=== PATIENT | male | born 1955 | race Caucasian/White ===

== ENCOUNTER 2023-04-24 12:00 | Inpatient (IN) | payer MEDICARE ==
[~2023-04-24] VITALS: Ht 175.3 cm; Wt 110.5 kg
[2023-04-24] MEDS: DOCUSATE SODIUM 100 MG (COLACE) CAP PO SCH ×3 (09:00→21:54)
[~2023-04-24 12:00] MED LIST: ACETAMINOPHEN 325 MG TABLET PO PRN; ALPRAZolam 0.25 MG (XANAX) TAB PO PRN; BISACODYL 10 MG SUPP (DULCOLAX) PR PRN; CALCIUM CARBONATE 500 MG (TUMS) TAB.CHEW PO PRN; DOCUSATE SODIUM 100 MG (COLACE) CAP PO PRN; FLEET ENEMA ADULT 1 EA BTL PR PRN; LACTULOSE SYRUP 10GM/15ML (ENULOSE) 30ML UDC PO PRN; LOPERAMIDE 2 MG (IMODIUM) TABLET PO PRN; MELATONIN 3 MG TABLET PO PRN; ONDANSETRON 4 MG (ZOFRAN) ORAL DISSOLVE TAB PO PRN; diphenhydrAMINE 25 MG TAB (BENADRYL) PO PRN; guaiFENesin/CODEINE (ROBITUSSIN AC) 10ML UDC PO PRN
--- NOTE | 2023-04-24 12:08 | PM&R Post Admission Assessment ---
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 He has a history of telangiectasia of the left eye that forced early mcc. He currently has no pain and his bowels are moving. He has had no incontinence. He did not bring his CPAP with him so ordered a CPAP set up from [facility]. His brought him over to the hospital and she arrives and has no new concerns. He did not receive tPA since NIH score was 2. MRI confirmed right sided cerebral infarct. He remains on stroke protocol meds. 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 The patient presented to the ER with a chief complaint of left-sided weakness. The patient was in his usual state of healthuntil approximately 8:00 on yesterday, when he began to develop left-sided weakness, while watching TV. He also reported other associated symptoms such as lip paresthesia, facial asymmetry, slurred speech, dizziness, clumsiness, and recent falls. He,also,reports that he developed twoepisode of diarrhea with fecal incontinence,which she attributes to his taking metformin, which she has taken for several years. Upon the patient's arrival to the ER, by wheelchair, his blood pressure was noted to be as high as 215/90 mmHg. The patient denies headache, blurred vision, fevers, chills, night sweats, jaw pain, neck pain, chest pain, diaphoresis, dyspnea, dyspnea on exertion, cough, sputum production, hemoptysis, nausea, vomiting, hematemesis, coffee-ground emesis, constipation, abdominal pain, melena, hematochezia, hematuria, dysuria, increased urinary frequency, lower extremity edema, or any other symptoms. ? Abnormal stress test ? Anxiety ? CAD (coronary artery disease) 02/03/2018 3-CABG ? Carotid stenosis, bilateral ? Chest pain ? Chest pain on exertion ? Elevated liver enzymes ? H/O seasonal allergies ? HTN (hypertension) ? Hyperlipidemia 12/14 ? Neuropathy of both feet ? Obesity ? BAYLEE (obstructive sleep apnea) dx 2003 on CPAP and it works well; test done at [facility] so records lost in [place] 03/11 ? Sleep apnea USES C-PAP ? Telangiectasis L EYE - avascular ? Thromboembolism CAROTID ARTERY ON RIGHT, TX WITH ELIQUIS ? Type II diabetes mellitus 05/2011 LAST HGB A1C 7 ? HX HEART CATHETERIZATION 01/13/2018 ? HX ORTHOPEDIC SURGERY ? NJ ARTHROSCOPY KNEE DIAGNOSTIC W/WO SYNOVIAL BX SPX 2000 R KNEE ? NJ CABG W/ARTERIAL GRAFT SINGLE ARTERIAL GRAFT N/A 02/03/2018 CORONARY ARTERY BYPASS GRAFT WITH TANIA performed by Vidal Orr II, MD at [facility] OR ? NJ NDSC SURG W/VIDEO-ASSISTED HARVEST VEIN CABG Left 02/03/2018 VEIN HARVEST ENDOSCOPIC performed by Vidal Orr II, MD at [facility] OR [facility] summary: Please see H and P for full details on admission, symptoms and initial care. 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 MRI brain showed acute right lacunar stroke. CTA of head and neck did not show any s ignificant stenosis or occlusion. Neurology started on Plavix along with Aspirin, and changed statin to Lipitor. ECHO did not show any clots or PFO. Patient cleared for discharge to [facility]. He has 3/5 strength in left arm, and 4-5/5 in left leg. He is able to ambulate with some support. He will follow up with outpatient Neurology in 2-3 weeks. Past Sgkhffm-Rwdrsu-Bdsrse Hx Past Med/Social Hx: Reviewed Nursing Past Med/Soc Hx, Reviewed and Corrections made Patient Social History Marrital Status: Employed/Student: retired Alcohol Use: Occasionally Uses Smoking Status: Never a Smoker Past Medical History Respiratory: Sleep Apnea Currently Using CPAP: Yes Currently Using BIPAP: No Cardiac: Chronic Edema/Swelling, Coronary Artery Disease, Deep Vein Thrombosis, High Cholesterol, Hypertension Neurological: Stroke (04/22/23) Genitourinary: Renal Failure Musculoskeletal: Degenerate Disk Disease, Chronic Back Pain Endocrine: Diabetes, Insulin dep Are Your Blood Sugars Over 250: Yes PM&R Allergy/Meds/Data Review Allergies Coded Allergies: tetracycline (Verified Allergy, Mild, Rash, 04/24/23) Current Medications Current Medications Reviewed Review of Systems Constitutional: see HPI, dizziness, weakness EENTM: no symptoms reported Respiratory: no symptoms reported Cardiovascular: no symptoms reported Gastrointestinal: no symptoms reported Genitourinary: no symptoms reported Musculoskeletal: no symptoms reported Skin: no symptoms reported Psychiatric/Neurological: Anxiety, Depressed, Tingling, Weakness All Other Systems Reviewed Negative Unless Noted: Yes Physical Exam Physical Exam Vital Signs Capillary Refill : Height, Weight, BMI Height: '" Weight: lbs. oz. kg; BMI Method: General Appearance: No Apparent Distress, WD/WN, Chronically ill Eyes: Bilateral Eye Normal Inspection, Bilateral Eye PERRL HEENT: PERRL/EOMI, Normal ENT Inspection, Pharynx Normal Neck: Full Range of Motion, Normal Inspection, Non Tender, Supple, Carotid Bruit Respiratory: Chest Non Tender, Lungs Clear, Normal Breath Sounds, No Accessory Muscle Use, No Respiratory Distress Cardiovascular: Regular Rate, Rhythm, No Edema, No Gallop, No JVD, No Murmur, Normal Peripheral Pulses Gastrointestinal: Normal Bowel Sounds, No Organomegaly, No Pulsatile Mass, Non Tender, Soft Back: Normal Inspection, No CVA Tenderness, No Vertebral Tenderness Extremity: Normal Capillary Refill, Normal Inspection, Normal Range of Motion, Non Tender, No Calf Tenderness, No Pedal Edema Neurologic/Psychiatric: Alert, Oriented x3, Normal Mood/Affect, acid leveler II-XII Norm as Tested, Abnormal Gait, Motor Weakness (Left arm 3/5 left leg 4/5) Skin: Normal Color, Warm/Dry Lymphatic: No Adenopathy PM&R Medical Assessment & Plan REHAB/MEDICAL ASSESSMENT AND PLAN: REHAB IMPAIRMENT GROUP: CVA ETIOLOGIC DIAGNOSIS: CVA The comorbidities that impact the patients function and/or functional outcome by: CAD, diabetes, hypertension, obesity, BAYLEE on CPAP REHAB PLAN: The patient is being admitted to our comprehensive inpatient rehabilitation facility and can tolerate the intensity of service consisting of at least: 180 minutes of therapy a day, 5 out of 7 days a week Rehab treatment will consist of: PT and OT will focus on regaining function with use of assistive device in order to read and prevent falls and increased independence in ADLs in order to return back home with spouse The patient/family has a good understanding of our discharge process and will benefit from an interdisciplinary inpatient rehabilitation program. The patient has potential to make improvement and is in need of at least two of the following multidisciplinary therapies including but not limited to physical, occupational, speech, and prosthetics and orthotics. Additionally the patient will need services from respiratory, nutritional services, wound care, psychology, etc. (Customize this to each patient). Given the patients complex condition and risk of further medical complications, rehabilitation services cannot be safely or effectively provided at a lower level of care such as a custodial facility. BARRIERS TO DISCHARGE: left-sided weakness ESTIMATED LOS: 10 days DISPOSITION: home RELEVANT CHANGES SINCE PREADMISSION SCREENING: I have compared the patients medical and functional status at the time of the preadmission screening and there are: no changes PROGNOSIS: good REHABILITATION GOALS: 1. PT and OT will focus on regaining function with use of assistive device in order to read and prevent falls and increased independence in ADLs in order to return back home with spouse All the above goals were reviewed with the patient and he/she is in agreement. By signing this document, I acknowledge that I have personally performed a full physical examination on this patient within 24 hours of admission to this inpatient rehabilitation facility and have determined the patient to be able to tolerate the above course of treatment at an intensive level for a reasonable period of time. I will be completing a detailed individualized Plan of Care for this patient by day #4 of the patients stay based upon the Preadmission Screen, the Post-Admission Evaluation, and the therapy evaluations. Admission Dx/Comorbidities: (1) CVA (cerebral vascular accident) ICD Codes: I63.9 - Cerebral infarction, unspecified Assessment/Plan Assessment and Plan Assess & Plan/Chief Complaint Assessment: CVA with left-sided weakness with infarct confirmed on MRI placed on Plavix and aspirin and statin Diabetes insulin-dependent tgv-uo-aiklwep Hypertension Hyperlipidemia CAD previous bypass Carotid stenosis with stable carotid ultrasound performed on 04/21/[address] 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
[2023-04-24] MEDS ORDERED: hydrALAZINE (APRESOLINE) 25 MG TAB PO PRN (12:15)
[2023-04-24 13:00] VITALS: BP 179/81
[2023-04-24] MEDS: SENNA W/DOCUSATE (SENOKOT S) TABLET PO SCH ×2 (15:27→21:56)
[2023-04-24] MEDS: polyethylene glycoL POWDER 17 GM (MIRALAX) PACK PO SCH ×2 (15:27→20:05)
[2023-04-24] MEDS: metFORMIN 500 MG (GLUCOPHAGE) TAB PO SCH (16:47)
[2023-04-24] MEDS: ENOXAPARIN 40 MG/0.4 ML (LOVENOX) SYR SC SCH (16:49)
[2023-04-24] MEDS: inSUlin ASPART (NovoLOG) 1 UNIT/0.01 ML (CHARGE PER UNIT) SC SCH ×2 (16:56→21:43)
[2023-04-24 20:00] VITALS: BP 177/77
[2023-04-24] MEDS: inSUlin NPH/REG (NovoLIN 70/30) CHARGE PER UNIT SQ SCH (21:44)
[2023-04-25 05:46] LABS: BASOPHILS # (AUTO) 0.1 10^3/uL (0.0-0.1); BASOPHILS % (AUTO) 1 % (0-10); EOSINOPHILS # (AUTO) 0.8 10^3/uL (0.0-0.3); EOSINOPHILS % (AUTO) 9 % (0-10); HEMATOCRIT 35 % (40-54); HEMOGLOBIN 11.4 g/dL (13.3-17.7); LYMPHOCYTES # (AUTO) 1.6 10^3/uL (1.0-4.0); LYMPHOCYTES % (AUTO) 18 % (12-44); MEAN CORPUSCULAR HEMOGLOBIN 28 pg (25-34); MEAN CORPUSCULAR HGB CONC 33 g/dL (32-36); MEAN CORPUSCULAR VOLUME 85 fL (80-99); MEAN PLATELET VOLUME 10.2 fL (9.0-12.2); MONOCYTES # (AUTO) 0.9 10^3/uL (0.0-1.0); MONOCYTES % (AUTO) 11 % (0-12); NEUTROPHILS # (AUTO) 5.3 10^3/uL (1.8-7.8); NEUTROPHILS % (AUTO) 61 % (42-75); PLATELET COUNT 276 10^3/uL (130-400); WHITE BLOOD COUNT 8.7 10^3/uL (4.3-11.0)
[2023-04-25] MEDS: metFORMIN 500 MG (GLUCOPHAGE) TAB PO SCH ×2 (06:02→16:48)
[2023-04-25] MEDS: GLIMEPIRIDE 2 MG (AMARYL) TAB PO SCH (06:02)
[2023-04-25 06:03] LABS: ALBUMIN 3.5 GM/DL (3.2-4.5); BILIRUBIN,TOTAL 0.4 MG/DL (0.1-1.0); CALCIUM 8.8 MG/DL (8.5-10.1); CREATININE SERUM 1.1 MG/DL (0.60-1.30); TOTAL PROTEIN 6.8 GM/DL (6.4-8.2)
[2023-04-25] MEDS: inSUlin ASPART (NovoLOG) 1 UNIT/0.01 ML (CHARGE PER UNIT) SC SCH ×4 (06:40→21:15)
--- NOTE | 2023-04-25 06:58 | PM&R Progress Note ---
Subjective HPI/CC On Admission Date Seen by Provider: Apr 25, 2023 Time Seen by Provider: 12:00 Subjective/Events-last exam 04/25/2023: Patient in good spirits today Family friends visiting Reviewed labs Blood sugars better No falls Pain is controlled Added on hemoglobin A1c Review of Systems General: Fatigue, Malaise Objective Exam Vital Signs Vital Signs Date Time Temp Pulse Resp B/P (MAP) Pulse Ox O2 Delivery O2 Flow Rate FiO2 04/25/23 09:55 Room Air 04/25/23 08:00 36.4 55 14 165/74 (104) 97 04/24/23 13:49 30.00 Capillary Refill : General Appearance: No Apparent Distress, WD/WN, Chronically ill HEENT: PERRL/EOMI, Normal ENT Inspection, Pharynx Normal Neck: Full Range of Motion, Normal Inspection, Non Tender, Supple, Carotid Bruit Respiratory: Chest Non Tender, Lungs Clear, Normal Breath Sounds, No Accessory Muscle Use, No Respiratory Distress Cardiovascular: Regular Rate, Rhythm, No Edema, No Gallop, No JVD, No Murmur, Normal Peripheral Pulses Gastrointestinal: Normal Bowel Sounds, No Organomegaly, No Pulsatile Mass, Non Tender, Soft Back: Normal Inspection, No CVA Tenderness, No Vertebral Tenderness Extremity: Normal Capillary Refill, Normal Inspection, Normal Range of Motion, Non Tender, No Calf Tenderness, No Pedal Edema Neurologic/Psychiatric: Alert, Oriented x3, Normal Mood/Affect, 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 FIM Transfers Therapy Code Descriptions/Definitions Functional [place] Measure: 0=Not Assessed/NA 4=Minimal Assistance 1=Total Assistance 5=Supervision or Setup 2=Maximal Assistance 6=Modified [place] 3=Moderate Assistance 7=Complete IndependenceSCALE: Activities may be completed with or without assistive devices. 2-Safdlaxcys-awipufa completes the activity by him/herself with no assistance from a helper. 5-Set-up or Clean-up Assistance-helper sets up or cleans up; patient completes activity. [place] assists only prior to or following the activity. 4-Supervision or Touching Assistance-helper provides verbal cues and/or touc rosanna/steadying and/or contact guard assistance as patient completes activity. Assistance may be provided throughout the activity or intermittently. 3-Partial/Moderate Assistance-helper does LESS THAN HALF the effort. [place] lifts, holds or supports trunk or limbs, but provides less than half the effort. 2-Substantial/Maximal Assistance-helper does MORE THAN HALF the effort. [place] lifts or holds trunk or limbs and provides more than half the effort. 7-Kluglgdrq-awdwyf does ALL the effort. Patient does none of the effort to complete the activity. Or, the assistance of 2 or more helpers is required for the patient to complete the activity. If activity was not attempted, code reason: 7-Patient Refused. 9-Not Applicable-not attempted and the patient did not perform the activity be fore the current illness, exacerbation or injury. 10-Not Attempted due to Environmental Limitations-(lack of equipment, weather restraints, etc.). 88-Not Attempted due to Medical Conditions or Safety Concerns. Assessment/Plan Assessment and Plan Assess & Plan/Chief Complaint Assessment: CVA with left-sided weakness with infarct confirmed on MRI placed on Plavix and aspirin and statin Diabetes insulin-dependent ngd-nt-uuzvflq Hypertension Hyperlipidemia CAD previous bypass Carotid stenosis with stable carotid ultrasound performed on 04/21/[address] 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
[2023-04-25 08:00] VITALS: BP 165/74
[2023-04-25] MEDS ORDERED: inSUlin NPH/REG (NovoLIN 70/30) CHARGE PER UNIT SQ SCH (08:00)
[2023-04-25] MEDS: LOSARTAN 100 MG (COZAAR) TABLET PO SCH (08:44)
[2023-04-25] MEDS: CLOPIDOGREL 75 MG (PLAVIX) TABLET PO SCH (08:44)
[2023-04-25] MEDS: EMPAGLIFLOZIN 10 MG TABLET (JARDIANCE) PO SCH (08:44)
[2023-04-25] MEDS: ASPIRIN E.C. 81 MG (ECOTRIN) TAB PO SCH (08:44)
[2023-04-25] MEDS: polyethylene glycoL POWDER 17 GM (MIRALAX) PACK PO SCH ×2 (08:50→19:46)
[2023-04-25] MEDS: inSUlin NPH/REG (NovoLIN 70/30) CHARGE PER UNIT SQ SCH (08:50)
[2023-04-25] MEDS: SENNA W/DOCUSATE (SENOKOT S) TABLET PO SCH ×2 (08:50→19:46)
[2023-04-25] MEDS: DOCUSATE SODIUM 100 MG (COLACE) CAP PO SCH ×2 (08:50→19:46)
--- NOTE | 2023-04-25 09:28 | Physical Therapy Evaluation ---
PT Evaluation-General Medical Diagnosis Admission Date Apr 24, 2023 at 12:00 Medical Diagnosis: CVA (L) side weakness Onset Date: Apr 21, 2023 Therapy Diagnosis Therapy Diagnosis: impaired mobility Precautions Precautions/Isolations: Fall Prevention, Standard Precautions Weight Bear Status Full Weight Bearing Full Weight Bearing Referral Physician: Marley June Reason for Referral: Evaluation/Treatment Medical History Pertinent Medical History: CAD, CVA, DM, HTN, Renal Insufficiency Additional Medical History low vision left eye Current History Pt was at home April 21 when he began having stroke like symptoms. Pt taken to [facility] in [place] where he was diagnosed with CVA. Social History Home: Single Level Current Living Status: Spouse Entry Into Home: Stairs Without Railing PT Steps Into Home: 2 Prior Prior Level of Function SCALE: Activities may be completed with or without assistive devices. 0-Fwnsffxivd-msmjbpi completes the activity by him/herself with no assistance from a helper. 5-Set-up or Clean-up Assistance-helper sets up or cleans up; patient completes activity. [place] assists only prior to or following the activity. 4-Supervision or Touching Assistance-helper provides verbal cues and/or touching/steadying and/or contact guard assistance as patient completes activity. Assistance may be provided throughout the activity or intermittently. 3-Partial/Moderate Assistance-helper does LESS THAN HALF the effort. [place] lifts, holds or supports trunk or limbs, but provides less than half the effort. 2-Substantial/Maximal Assistance-helper does MORE THAN HALF the effort. [place] lifts or holds trunk or limbs and provides more than half the effort. 2-Jxenmnvnt-rxudkc does ALL the effort. Patient does none of the effort to complete the activity. Or, the assistance of 2 or more helpers is required for the patient to complete the activity. If activity was not attempted, code reason: 7-Patient Refused. 9-Not Applicable-not attempted and the patient did not perform the activity before the current illness, exacerbation or injury. 10-Not Attempted due to Environmental Limitations-(lack of equipment, weather restraints, etc.). 88-Not Attempted due to Medical Conditions or Safety Concerns. Bed Mobility: 6 Transfers (B,C,W/C): 6 Gait: 6 Stairs: 6 Indoor Mobility (Ambulation): Independent Stairs: Independent PT Evaluation-Current Subjective Pt reports he is making progress, the leg faster than the arm. Pain Section J - Health Conditions 1. Rarely or not at all 2. Occasionally 3. Frequently 4. Almost constantly 8. Unable to answer Pain Effect on Sleep: 1 Pain Interference with Therapy: 1 Pain Interference w/Day-to-Day: 1 Objective Patient Orientation: Normal For Age ROM/Strength ROM Lower Extremities full passive range, left active range is limited by abnormal tone Strength Lower Extremities (R) LE 5/5, (L) LE gross 4/5 but fatigues quickly Sensory Vision: Functional Hearing: Functional Transfers Roll Left & Right (QC): 6 Sit to Lying (QC): 4 Lying to Sitting/Side of Bed(Q: 4 Sit to Stand (QC): 4 Chair/Ffj-wb-Zrzha Xfer(QC): 4 Toilet Transfer (QC): 4 Car Transfer (QC): 4 Impulsive with transfers. Needs cueing to slow down. He needs education on safe sequences. Gait Does the Patient Walk?: Yes Mode of Locomotion: Walk Anticipated Mode of Locomotion: Walk Walk 10 feet (QC): 4 Walk 50 ft with 2 Turns(QC): 4 Walk 150 ft (QC): 4 Walking 10ft/uneven surface-QC: 4 Distance: 200 Gait Assistive Device: Cane Small Base Quad Comments/Gait Description intermittent left to drag with Min assist to recover balance, toe drag increases with fatigue Wheelchair Training Wheel 50 ft with 2 turns (QC): 9 Wheel 150 ft (QC): 9 Stairs #of Steps: 12 1 Step (curb) (QC): 4 4 Steps (QC): 4 12 Steps (QC): 4 Balance Sitting Static: Good Sitting Dynamic: Good Standing Static: Fair Standing Dynamic: Fair Picking up an Object (QC): 4 Special Test Comments [place] and sharpened rhomberg eyes open and closed for 10 seconds, Min A for balance Assessment/Needs Pt has left LE weakness, loss of motor control, and poor safety awareness. Pt will benefit from skilled physical therapy to address weakness, loss of motor control, improve mobility, gait, and return to (I) function. Rehab Potential: Good PT Short Term Goals Short Term Goals Time Frame: Apr 30, 2023 Roll Left & Right: 6 Sit to lyin Lying to sitting on side of be: 6 Sit to stand: 6 Chair/yeq-bt-zmbcs transfer: 6 Toilet transfer: 6 Car transfer: 5 Walk 10 feet: 6 Walk 50 feet with two turns: 6 Walk 150 feet: 4 Walking 10ft on uneven surface: 4 1 step (curb): 4 4 steps: 4 12 steps: 4 PT Correction Goals Correction Goals PT Correction Goals Time Frame: May 07, 2023 Roll Left to Right (QC): 6 Sit to Lying (QC): 6 Lying-Sitting on Side/Bed(QC): 6 Sit to Stand (QC): 6 Chair/Mmf-tc-Vaoyo Xfer(QC): 6 Toilet/Commode Transfer (QC): 6 Car Transfer (QC): 6 Walk 10 feet (QC): 6 Walk 10ft-Uneven Surface(QC): 6 Walk 50ft with 2 Turns (QC): 6 Walk 150 ft (QC): 6 Does the Pt use WC or Scooter?: No Wheel 50 feet with 2 turns (QC: 6 Type: Manual Wheel 150 feet: 6 Type: Manual 1 Step (curb) (QC): 6 4 Steps (QC): 6 12 Steps (QC): 6 Picking up an Object (QC): 6 PT Plan Problem List Problem List: Activity Tolerance, Functional Strength, Safety, Balance, Gait, Transfer, Bed Mobility Treatment/Plan Treatment Plan: Continue Plan of Care Treatment Plan: Bed Mobility, Education, Functional Activity Karen, Functional Strength, Group Therapy, Gait, Safety, Therapeutic Exercise, Transfers Treatment Duration: May 07, 2023 Frequency: At least 5 of 7 days/Wk (IRF) Estimated Hrs Per Day: 1.5 hours per day Patient and/or Family Agrees t: Yes Time Time In: 844 Time Out: 929 DATE: Apr 25, 2023 Total Billed Treatment Time: 45 Total Billed Treatment visit, evaluation moderate complexity 45 min MARIA GARCIA PT Apr 25, 2023 09:27
[2023-04-25] MEDS: ENOXAPARIN 40 MG/0.4 ML (LOVENOX) SYR SC SCH (16:48)
[2023-04-25] MEDS ORDERED: inSUlin ASPART/PROTA (NovoLOG 70/30) CHARGE PER UNIT SC SCH (18:00)
[2023-04-25 19:12] VITALS: BP 187/90
[2023-04-26] MEDS: GLIMEPIRIDE 2 MG (AMARYL) TAB PO SCH (05:51)
[2023-04-26] MEDS: metFORMIN 500 MG (GLUCOPHAGE) TAB PO SCH ×2 (05:51→16:44)
--- NOTE | 2023-04-26 06:03 | PM&R Progress Note ---
Subjective HPI/CC On Admission Date Seen by Provider: Apr 26, 2023 Time Seen by Provider: 10:00 Subjective/Events-last exam 04/26/2023: Participation is good Recovering nicely Blood sugars reviewed No pain Uses CPAP 04/25/2023: Patient in good spirits today Family friends visiting Reviewed labs Blood sugars better No falls Pain is controlled Added on hemoglobin A1c Review of Systems General: Fatigue, Malaise Objective Exam Vital Signs Vital Signs Date Time Temp Pulse Resp B/P (MAP) Pulse Ox O2 Delivery O2 Flow Rate FiO2 04/27/23 02:43 11 97 30.00 04/26/23 21:20 NIV Bilevel 04/26/23 20:27 36.3 64 146/58 (87) Capillary Refill : General Appearance: No Apparent Distress, WD/WN, Chronically ill HEENT: PERRL/EOMI, Normal ENT Inspection, Pharynx Normal Neck: Full Range of Motion, Normal Inspection, Non Tender, Supple, Carotid Bruit Respiratory: Chest Non Tender, Lungs Clear, Normal Breath Sounds, No Accessory Muscle Use, No Respiratory Distress Cardiovascular: Regular Rate, Rhythm, No Edema, No Gallop, No JVD, No Murmur, Normal Peripheral Pulses Gastrointestinal: Normal Bowel Sounds, No Organomegaly, No Pulsatile Mass, Non Tender, Soft Back: Normal Inspection, No CVA Tenderness, No Vertebral Tenderness Extremity: Normal Capillary Refill, Normal Inspection, Normal Range of Motion, Non Tender, No Calf Tenderness, No Pedal Edema Neurologic/Psychiatric: Alert, Oriented x3, Normal Mood/Affect, 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 FIM Transfers Therapy Code Descriptions/Definitions Functional [place] Measure: 0=Not Assessed/NA 4=Minimal Assistance 1=Total Assistance 5=Supervision or Setup 2=Maximal Assistance 6=Modified [place] 3=Moderate Assistance 7=Complete IndependenceSCALE: Activities may be completed with or without assistive devices. 4-Dpsedzfhmi-jznbofm completes the activity by him/herself with no assistance from a helper. 5-Set-up or Clean-up Assistance-helper sets up or cleans up; patient completes activity. [place] assists only prior to or following the activity. 4-Supervision or Touching Assistance-helper provides verbal cues and/or touching/steadying and/or contact guard assistance as patient completes activity. Assistance may be provided throughout the activity or intermittently. 3-Partial/Moderate Assistance-helper does LESS THAN HALF the effort. [place] lifts, holds or supports trunk or limbs, but provides less than half the effort. 2-Substantial/Maximal Assistance-helper does MORE THAN HALF the effort. [place] lifts or holds trunk or limbs and provides more than half the effort. 7-Wsmvcnukr-muhnqj does ALL the effort. Patient does none of the effort to complete the activity. Or, the assistance of 2 or more helpers is required for the patient to complete the activity. If activity was not attempted, code reason: 7-Patient Refused. 9-Not Applicable-not attempted and the patient did not perform the activity before the current illness, exacerbation or injury. 10-Not Attempted due to Environmental Limitations-(lack of equipment, weather restraints, etc.). 88-Not Attempted due to Medical Conditions or Safety Concerns. Roll Left to Right (QC): 6 Sit to Lying (QC): 4 Sit to Stand (QC): 4 Chair/Rjk-dr-Hrqhg Xfer(QC): 4 Car Transfer (QC): 4 Gait Training Does the Patient Walk?: Yes Walk 10 feet (QC): 4 Walk 50 ft with 2 Turns(QC): 4 Walk 150 ft (QC): 4 Walking 10ft/uneven surface-QC: 4 Gait Assistive Device: Cane Small Base Quad Wheelchair Training Wheel 50 ft with 2 turns (QC): 9 Wheel 150 ft (QC): 9 Stair Training #of Steps: 12 1 Step (curb) (QC): 4 4 Steps (QC): 4 12 Steps (QC): 4 Balance Picking up an Object (QC): 4 Assessment/Plan Assessment and Plan Assess & Plan/Chief Complaint Assessment: CVA with left-sided weakness with infarct confirmed on MRI placed on Plavix and aspirin and statin Diabetes insulin-dependent rlq-kq-qdrjwlo Hypertension Hyperlipidemia CAD previous bypass Carotid stenosis with stable carotid ultrasound performed on 04/21/[address] 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
[2023-04-26] MEDS: inSUlin ASPART (NovoLOG) 1 UNIT/0.01 ML (CHARGE PER UNIT) SC SCH ×4 (06:44→20:45)
[2023-04-26] MEDS: inSUlin NPH/REG (NovoLIN 70/30) CHARGE PER UNIT SQ SCH (07:12)
[2023-04-26 07:58] VITALS: BP 163/77
--- NOTE | 2023-04-26 08:13 | Occupational Therapy Eval ---
OT Evaluation-General/PLF Medical Diagnosis Admission Date Apr 24, 2023 at 12:00 Medical Diagnosis: CVA (L) side weakness Onset Date: Apr 21, 2023 Therapy Diagnosis Therapy Diagnosis: Weakness, decreased ADL skills Precautions Precautions/Isolations: Fall Prevention, Standard Precautions Weight Bear Status Weight Bearing Restriction: Weight Bearing/Tolerated Referral Physician: Marley June Referral Reason: Activity Tolerance, Self Care, Evaluation/Treatment, Strengthening/ROM Medical History Pertinent Medical History: CAD, CVA, DM, HTN, Renal Insufficiency Additional Medical History Telangiectasia ( spot on retina). Pt. reports that this affects his left eye more than his right. Current History Pt. states that he drank one beer on April 21, 2023. He began having some symptoms and at first thought it was from the beer. Eventually he went to ER. He did not receive TPA as he did not qualify. Reviewed History: Yes Social History Home: Single Level Current Living Status: Spouse (Also with 21 year old son) Entry Into Home: Stairs With Railing, Stairs Without Railing Steps Into Home: 2 ADL-Prior Level of Function SCALE: Activities may be completed with or without assistive devices. 7-Gufrqlgvrq-vdhzivg completes the activity by him/herself with no assistance from a helper. 5-Set-up or Clean-up Assistance-helper sets up or cleans up; patient completes activity. [place] assists only prior to or following the activity. 4-Supervision or Touching Assistance-helper provides verbal cues and/or touching/steadying and/or contact guard assistance as patient completes activity. Assistance may be provided throughout the activity or intermittently. 3-Partial/Moderate Assistance-helper does LESS THAN HALF the effort. [place] lifts, holds or supports trunk or limbs, but provides less than half the effort. 2-Substantial/Maximal Assistance-helper does MORE THAN HALF the effort. [place] lifts or holds trunk or limbs and provides more than half the effort. 0-Aybuwusuj-rftuyq does ALL the effort. Patient does none of the effort to complete the activity. Or, the assistance of 2 or more helpers is required for the patient to complete the activity. If activity was not attempted, code reason: 7-Patient Refused. 9-Not Applicable-not attempted and the patient did not perform the activity before the current illness, exacerbation or injury. 10-Not Attempted due to Environmental Limitations-(lack of equipment, weather restraints, etc.). 88-Not Attempted due to Medical Conditions or Safety Concerns. ADL PLOF Comments Pt. was fully independent with daily skills. 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 Pt. states that currently he takes care of the [place] in his town. He reports that he still drives, but does not know how long he can continue. Self Care: Independent Functional Cognition: Independent DME/Equipment: Tub/Shower DME/Equipment Comments Pt. does not use an assistive device. He does not have a shower chair at home. 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 does not report pain, but does report that he has had a headache in the right upper region of head. It is inconsistent. Appearance Pt. in bed. He has a C-Pap on but takes off. He is pleasant and alert. Agrees to work with therapy. Mental Status/Objective Patient Orientation: Person, Place, Time, Situation Current Hand Dominance: Right Upper Extremity ROM Right- WFL Left- Pt. is able to raise shoulder to full level, but is unable to control elbow/wrist/hand when doing so. So when he raises it his arm hands at elbow level. When shoulder is down pt. is able to flex elbow but compensates into abduction. He has movement in wrist in both extension and flexion. He is able to slightly wiggle all fingers but his index. He reports that his fingers were moving more earlier. Upper Extremity Strength Pt. demonstrates approximately 3/5 strength in elbow in modified position. Unable to test shoulder strength due to positioning of rest of arm when attempting to flex. Very little grasp noted in hand. ADL-Treatment Eating (QC): 5 Oral Hygiene (QC): 10 (Will test at later time.) Shower/Bathe Self (QC): 10 (Therapist will complete later in morning.) Upper Body Dressing (QC): 4 (Supervision per pt.) Lower Body Dressing (QC): 3 (Min/mod assist with donning pants per pt.) On/Off Footwear (QC): 3 (Pt. has donned socks and shoes prior to OT entering room. It is noted that shoes arent tied. OT asks him to practice again and pt. is able to slip his foot into/out of his shoes but is unable to tie them.) Toileting Hygiene (QC): 10 Other Treatments Pt. in bed. Agreeable to treatment. Pt. is fully dressed when OT comes in. He states that he had some help from nursing, but could do most himself. He does require SBA for supine-sit. He is able to stand with quad cane on right side with CGA. Pt. takes approximately 4 steps and turns successfully with no LOB. Pt. is able to feel light touch during testing, and has movement in all parts. It is more diminished the more distal down the arm. Pt. back in bed with SBA for sit-supine, and all needs met at end of session. Education OT Patient Education: Correct positioning, Modified ADL techniques, Progress toward Goal/Update tx plan, Purpose of tx/functional activities, Reviewed precautions, Rehab process, Transfer techniques, Use of adapted equipment Teaching Recipient: Patient Teaching Methods: Demonstration, Discussion Response to Teaching: Verbalize Understanding, Return Demonstration BIMS CAM BIMS Expression of Ideas and Wants: Without Difficulty Understanding Verbal Content: Understands Brief Interview/Mental Status: Yes IRF OG BIMS: IRF OG BIMS Response (Comments) Value Repitition of Three Words Three 3 Recalls Socks Yes, No Cue Required 2 Recalls Blue Yes, No Cue Required 2 Recalls Bed Yes, No Cue Required 2 Year Correct 3 Month Accurate Within 5 Days 2 Day Correct 1 Total 15 CAM Mental Status Change/Baseline: 0 Inattention: 0 Disorganized thinkin Altered level of consciousness: 0 OT Short Term Goals Short Term Goals Time Frame: May 03, 2023 Eatin Oral hygiene: 6 Toileting hygiene: 3 (Min assist with AE) Shower/bathe self: 3 (Min assist with AE) Upper body dressin (Supervision) Lower body dressin (Supervision with AE as needed.) Putting on/taking off footwear: 4 (with AE) OT Vice President Process Goals Custodial Goals Time Frame: May 10, 2023 Acute change in mental status: 0 Inattention: 0 Disorganized thinkin Altered level of consciousness: 6 Eating (QC): 6 Oral Hygiene (QC): 6 Toileting Hygiene (QC): 6 Shower/Bathe Self (QC): 6 Upper Body Dressing (QC): 6 Lower Body Dressing (QC): 6 On/Off Footwear (QC): 6 Additional Goals: 1-Demonstrate ADL Tasks, 2-Verbalize Understanding, 3- ImproveStrength/Karen 1=Demonstrate adherence to instructed precautions during ADL tasks. 2=Patient will verbalize/demonstrate understanding of assistive devices/modifications for ADL. 3=Patient will improve strength/tolerance for activity to enable patient to perform ADL's. OT Education/Plan Problem List/Assessment Assessment: Decreased Activ Tolerance, Decreased UE Strength, Impaired Bed Mobility, Impaired I ADL's, Impaired Self-Care Skills, Restricted Funct UE ROM Discharge Recommendations Plan/Recommendations: Continue POC Therapy Discharge Recommendati: Post Acute OT Equpiment Recommendations-D/C: Hip Kit Treatment Plan/Plan of Care Treatment,Training & Education: Yes Patient would benefit from OT for education, treatment and training to promote independence in ADL's, mobility, safety and/or upper extremity function for ADL's. Plan of Care: ADL Retraining, Functional Mobility, UE Funct Exercise/Act Treatment Duration: May 10, 2023 Frequency: At least 5 of 7 days/Wk (IRF) Estimated Hrs Per Day: 1.5 hours per day Agreement: Yes Rehab Potential: Good Time Start Time: 07:35 Stop Time: 08:05 DATE: Apr 26, 2023 Total Time Billed (hr/min): 30 Billed Treatment Time 1, EVM x 15minutes, ADL x 15minutes STARR SHINE OT Apr 26, 2023 08:13
[2023-04-26] MEDS: LOSARTAN 100 MG (COZAAR) TABLET PO SCH (08:42)
[2023-04-26] MEDS: ASPIRIN E.C. 81 MG (ECOTRIN) TAB PO SCH (08:43)
[2023-04-26] MEDS: EMPAGLIFLOZIN 10 MG TABLET (JARDIANCE) PO SCH (08:43)
[2023-04-26] MEDS: DOCUSATE SODIUM 100 MG (COLACE) CAP PO SCH ×2 (08:43→21:32)
[2023-04-26] MEDS: CLOPIDOGREL 75 MG (PLAVIX) TABLET PO SCH (08:51)
[2023-04-26] MEDS: SENNA W/DOCUSATE (SENOKOT S) TABLET PO SCH ×2 (10:20→21:32)
[2023-04-26] MEDS: polyethylene glycoL POWDER 17 GM (MIRALAX) PACK PO SCH ×2 (10:20→21:32)
--- NOTE | 2023-04-26 10:26 | Individualized Plan of Care ---
Individualized Plan of Care Rehab Nursing IPOC Order Admission Date Apr 24, 2023 at 12:00 Current Orders Orders Admission Order(Inpt,Obs,Sdc) (04/23/23 16:49) Vital Signs: Per Unit Policy ( 08,16,00 (04/23/23 16:49) Reid Padron (04/23/23 16:49) Sequential Compression Device (04/23/23 16:49) Gizzard Peeler-Inpt Rehab Con (04/23/23 16:49) Rehab Nursing Orders-Ipoc (04/23/23 16:49) Physical Therapy Rehab Orders (04/23/23 16:49) Occupational Therapy Rehab Ord (04/23/23 16:49) Speech Therapy Rehab Orders (04/23/23 16:49) Cbc With Automated Diff (04/25/23 06:00) Comprehensive Metabolic Panel (04/25/23 06:00) Precautions (Aru) (04/23/23 16:49) Weekly Weight WEEK (04/23/23 16:49) Rehab-Intensity Of Therapy (04/23/23 16:49) Initiate Admission Nursing Pro .admission (04/23/23 16:49) Alprazolam Tablet (Xanax Tablet) (04/23/23 17:00) Calcium Carbonate Chew Tablet (Antacid C (04/23/23 17:00) Diphenhydramine Tablet (Benadryl Tablet) (04/23/23 17:00) Docusate Sodium Capsule (Colace Capsule) (04/23/23 21:00) Docusate Sodium Capsule (Colace Capsule) (04/23/23 17:00) Bisacodyl Suppository (Dulcolax Supposit (04/23/23 17:00) Lactulose Oral Solution (Enulose Oral So (04/23/23 17:00) Na Phos/Na Biphos Enema (Fleet Enema Patrick (04/23/23 17:00) Guaifenesin/Codeine Syrup (Robitussin Ac (04/23/23 17:00) Loperamide Tablet (Imodium Tablet) (04/23/23 17:00) Melatonin Tablet (Melatonin Tablet) (04/23/23 17:00) Polyethylene Glycol Powder Pkt (Miralax (04/23/23 21:00) Ondansetron Oral Dissolve Tab (Zofran (04/23/23 17:00) Senna S Tablet (Senokot S Tablet) (04/23/23 21:00) Acetaminophen Tablet/Caplet (Tylenol T (04/23/23 17:00) Code/Resuscitation (04/23/23 16:49) Initiate Admission Nursing Pro .admission (04/23/23 16:49) Admission Arrival Bed Request (04/24/23 12:02) General/Regular (04/24/23 Lunch) Accucheck Achs ACHS (04/24/23 12:06) Insulin Aspart (Novolog) (Novolog (Charg (04/24/23 16:00) Nursing Communication (Order) (04/24/23 12:06) Hydralazine Tablet (Apresoline Tablet) (04/24/23 12:15) Clopidogrel Tablet (Plavix Tablet) (04/25/23 09:00) Aspirin Enteric Coated Tablet (Ecotrin T (04/25/23 09:00) Atorvastatin Tablet (Lipitor Tablet) (04/24/23 21:00) Citalopram Tablet (Celexa Tablet) (04/25/23 09:00) Cpap (Set Up) (04/24/23 12:09) Empagliflozin Tablet (Jardiance Tablet) (04/25/23 09:00) Glimepiride Tablet (Amaryl Tablet) (04/25/23 06:30) Insulin Nph/Reg 70/30 (Humulin 70/30 Mix (04/25/23 08:00) Losartan Tablet (Cozaar Tablet) (04/25/23 09:00) Metformin Tablet (Glucophage Tablet) (04/24/23 17:00) Hemoglobin A1c (04/25/23 06:00) Enoxaparin Injection (Lovenox Injection) (04/24/23 17:00) Follow-Up Appointment (04/24/23 18:25) Insulin Nph/Reg 70/30 (Humulin 70/30 Mix (04/24/23 21:00) Patient Visit (04/25/23 ) Pt Eval Moderate Complexity (04/25/23 ) Insulin Nph/Reg 70/30 (Humulin 70/30 Mix (04/26/23 07:00) Insulin Aspart/Protamine 70/30 (Novolog (04/25/23 18:00) Patient Visit (04/26/23 ) Gait Training, Ea 15 Min (04/26/23 ) Exercise Therap, Ea 15 Min (04/26/23 ) Functional Activities, Ea 15 (04/26/23 ) Patient Visit (04/26/23 ) Exercise Therap, Ea 15 Min (04/26/23 ) Rehab Nursing Orders: Ongoing Assess. of Cognitive Status, Ongoing Assess. of Function Status, Bladder Management, Bladder Scan, Bladder Training, Bowel Management, Bowel Training, Disease Management & Educaiton, DVT Prophylaxis, Fall Prevention, Fluid/Electrolyte/Nutrition Mgmt, Infection Prevention, Medication Management & Education, Management of Risks & Complications, Management of Skin Intergrity, Nutrition Management, Pain Management, Patient/Family Support, Safety Management Intensity of Therapy to be met Patient to be seen: Min.3h per day/5 of 7d PT IPOC Problem List: Activity Tolerance, Functional Strength, Safety, Balance, Gait, Transfer, Bed Mobility Treatment Plan: Continue Plan of Care Bed Mobility, Education, Functional Activity Karen, Functional Strength, Group Therapy, Gait, Safety, Therapeutic Exercise, Transfers Treatment Duration: May 07, 2023 Frequency: At least 5 of 7 days/Wk (IRF) Estimated Hrs Per Day: 1.5 hours per day OT IPOC Problems: Decreased Activ Tolerance, Decreased UE Strength, Impaired Bed Mob ility, Impaired I ADL's, Impaired Self-Care Skills, Restricted Funct UE ROM OT Treatment, Training and Edu: Yes Plan of Care: ADL Retraining, Functional Mobility, UE Funct Exercise/Act Treatment Duration: May 10, 2023 Frequency: At least 5 of 7 days/Wk (IRF) Estimated Hrs Per Day: 1.[address] IPOC Speech Therapy Treatment Plan: Continue Plan of Care Treatment Duration: Apr 26, 2023 Frequency: Modified Program (IRF) Estimated Hrs Per Day: Other Gizzard Peeler/Case Mgmt Gizzard Peeler/Case Managemen: Discharge Planning Dietitian/Vegetable Grader Dietitian/Vegetable Grader to monitor nutritional status and make changes and/or recommendations as needed and work with speech pathology on dietary upgrades as the occur. Physician IPOC Medical Issues being managed closely and that require the 24 hour availability of a physician: Recent CVA with left-sided weakness and cognitive deficit will require close monitoring of blood sugar and blood pressure to decrease chance of decompensa tion and further extension of CVA Medical Issues: Bowel/Bladder Function, DVT Prophylaxis, Falls Precautions, Fluid/Electrolyte/Nutrition Balance, Infection Protection, Pain Management Brief Synthesis of Preadmission Screen, Post-Admission Evaluation, and Therapy Evaluations: PT and OT will focus on gaining strength of the left sided weakness along with increasing independence in ADLs with use of assistive devices in order to increase stamina with ambulation and return home with spouse Medical Prognosis: Good Anticipated Length of Stay: 10 days ADRI GOODRICH DO Apr 26, 2023 10:26
--- NOTE | 2023-04-26 10:27 | Occupational Ther Daily Note ---
OT Current Status-Daily Note Subjective Took over care from BEJARANO. Pt agrees to therapy. Pt states that he wants to work on making sure his L hand gets better. No c/o pain. Pt has squeeze ball and finger extension in room from home. Mental Status/Objective Patient Orientation: Person, Place, Time, Situation ADL-Treatment Therapy Code Descriptions/Definitions Functional [place] Measure: 0=Not Assessed/NA 4=Minimal Assistance 1=Total Assistance 5=Supervision or Setup 2=Maximal Assistance 6=Modified [place] 3=Moderate Assistance 7=Complete IndependenceSCALE: Activities may be completed with or without assistive devices. 5-Asencnjrqk-gtncsvz completes the activity by him/herself with no assistance f rom a helper. 5-Set-up or Clean-up Assistance-helper sets up or cleans up; patient completes activity. [place] assists only prior to or following the activity. 4-Supervision or Touching Assistance-helper provides verbal cues and/or touching/steadying and/or contact guard assistance as patient completes activity. Assistance may be provided throughout the activity or intermittently. 3-Partial/Moderate Assistance-helper does LESS THAN HALF the effort. [place] lifts, holds or supports trunk or limbs, but provides less than half the effort. 2-Substantial/Maximal Assistance-helper does MORE THAN HALF the effort. [place] lifts or holds trunk or limbs and provides more than half the effort. 9-Jhxzijfnu-lofyjv does ALL the effort. Patient does none of the effort to complete the activity. Or, the assistance of 2 or more helpers is required for the patient to complete the activity. If activity was not attempted, code reason: 7-Patient Refused. 9-Not Applicable-not attempted and the patient did not perform the activity before the current illness, exacerbation or injury. 10-Not Attempted due to Environmental Limitations-(lack of equipment, weather restraints, etc.). 88-Not Attempted due to Medical Conditions or Safety Concerns. Other Treatment Pt demonstrates L shldr, bicep, tricep, wrist/finger ext AROM though fatigues quickly. Working on wt bearing with L UE to promote increased awareness and movement throughout. Pt has decrease L asset protection assistant and requires assist to hold onto items. Pt education on wt bearing with L UE in room. After session, pt sitting in w/c with call light/phone in reach. All needs met. OT Short Term Goals Short Term Goals Time Frame: May 03, 2023 Eatin Oral hygiene: 6 Toileting hygiene: 3 (Min assist with AE) Shower/bathe self: 3 (Min assist with AE) Upper body dressin (Supervision) Lower body dressin (Supervision with AE as needed.) Putting on/taking off footwear: 4 (with AE) OT Halfway Goals Vp Respiratory Goals Time Frame: May 10, 2023 Acute change in mental status: 0 Inattention: 0 Disorganized thinkin Altered level of consciousness: 6 Eating (QC): 6 Oral Hygiene (QC): 6 Toileting Hygiene (QC): 6 Shower/Bathe Self (QC): 6 Upper Body Dressing (QC): 6 Lower Body Dressing (QC): 6 On/Off Footwear (QC): 6 Additional Goals: 1-Demonstrate ADL Tasks, 2-Verbalize Understanding, 3- ImproveStrength/Karen 1=Demonstrate adherence to instructed precautions during ADL tasks. 2=Patient will verbalize/demonstrate understanding of assistive devices/modifications for ADL. 3=Patient will improve strength/tolerance for activity to enable patient to perform ADL's. OT Education/Plan Problem List/Assessment Assessment: Decreased UE Strength, Impaired Funct Balance, Restricted Funct UE ROM, Visual-Perceptual Deficit Discharge Recommendations Plan/Recommendations: Continue POC Treatment Plan/Plan of Care Patient would benefit from OT for education, treatment and training to promote independence in ADL's, mobility, safety and/or upper extremity function for ADL's. Plan of Care: ADL Retraining, Functional Mobility, UE Funct Exercise/Act Treatment Duration: May 10, 2023 Frequency: At least 5 of 7 days/Wk (IRF) Estimated Hrs Per Day: 1.5 hours per day Agreement: Yes Rehab Potential: Good Time Start Time: 09:45 Stop Time: 10:15 DATE: Apr 26, 2023 Total Time Billed (hr/min): 30 Billed Treatment Time 1 visit-NM 2 (30 min) MARY CHAVEZ Apr 26, 2023 10:27
--- NOTE | 2023-04-26 12:16 | Physical Therapy Daily Note ---
PT Daily Note-Current Subjective Pt sitting in w/c in room visiting w/staff upon arrival. Pt agrees to PT. Pain Location: No Pain Reported Section J - Health Conditions 1. Rarely or not at all 2. Occasionally 3. Frequently 4. Almost constantly 8. Unable to answer Pain Effect on Sleep: 1 Pain Interference with Therapy: 1 Pain Interference w/Day-to-Day: 1 Mental Status Patient Orientation: Person, Place, Time, Situation Transfers SCALE: Activities may be completed with or without assistive devices. 2-Miwxczhmem-xizgdrd completes the activity by him/herself with no assistance from a helper. 5-Set-up or Clean-up Assistance-helper sets up or cleans up; patient completes activity. [place] assists only prior to or following the activity. 4-Supervision or Touching Assistance-helper provides verbal cues and/or touching/steadying and/or contact guard assistance as patient completes activity. Assistance may be provided throughout the activity or intermittently. 3-Partial/Moderate Assistance-helper does LESS THAN HALF the effort. [place] lifts, holds or supports trunk or limbs, but provides less than half the effort. 2-Substantial/Maximal Assistance-helper does MORE THAN HALF the effort. [place] lifts or holds trunk or limbs and provides more than half the effort. 3-Hieqdkuli-bmliag does ALL the effort. Patient does none of the effort to complete the activity. Or, the assistance of 2 or more helpers is required for the patient to complete the activity. If activity was not attempted, code reason: 7-Patient Refused. 9-Not Applicable-not attempted and the patient did not perform the activity before the current illness, exacerbation or injury. 10-Not Attempted due to Environmental Limitations-(lack of equipment, weather restraints, etc.). 88-Not Attempted due to Medical Conditions or Safety Concerns. Sit to Stand (QC): 4 Toilet Transfer (QC): 4 Weight Bearing Full Weight Bearing Full Weight Bearing Gait Training Does the Patient Walk?: Yes Distance: 175', 75' Walk 10 feet (QC): 4 Walk 50 ft with 2 Turns(QC): 4 Walk 150 ft (QC): 4 Gait Persons Needed: 1 Gait Assistive Device: Cane Large Base Quad Wheelchair Training Does the Pt Use a Wheelchair?: Yes Type of Wheelchair: Manual Exercises Seated Therapy Exercises: Ankle pumps, Long arc quads, Hip flexion, Hip abd/add, Glut set Seated Reps: 15 (Red Tband is used for resistance) Treatments TF from w/c to standing and amb in hallway to Therapy Gym. Pt takes short RB then completes Seated Ex on Therapy Mat using Red Tband. Pt then amb in hallway and returns to to room w/Sp present. Pt uses BR before returning to w/c to rest. All needs met, call light in hand & Sp present. Assessment Current Status: Good Progress Pt impulsive at times and needs VC to slow down for improved body control. PT Short Term Goals Short Term Goals Time Frame: Apr 30, 2023 Roll Left & Right: 6 Sit to lyin Lying to sitting on side of be: 6 Sit to stand: 6 Chair/set-iq-iefvq transfer: 6 Toilet transfer: 6 Car transfer: 5 Walk 10 feet: 6 Walk 50 feet with two turns: 6 Walk 150 feet: 4 Walking 10ft on uneven surface: 4 1 step (curb): 4 4 steps: 4 12 steps: 4 PT Shelter Goals Shelter Goals PT Health Informatics Instructor Goals Time Frame: May 07, 2023 Roll Left & Right (QC): 6 Sit to Lying (QC): 6 Lying-Sitting on Side/Bed(QC): 6 Sit to Stand (QC): 6 Chair/Tpw-ir-Xgczn Xfer(QC): 6 Toilet Transfer (QC): 6 Car Transfer (QC): 6 Does the Patient Walk: Yes Walk 10 feet (QC): 6 Walk 50ft with 2 Turns (QC): 6 Walk 150 ft (QC): 6 Walking 10ft on Uneven Surface: 6 1 Step (curb) (QC): 6 4 Steps (QC): 6 12 Steps (QC): 6 Picking up an Object (QC): 6 Does the Pt use WC or Scooter?: No Wheel 50 feet with 2 turns (QC: 6 Type: Manual Wheel 150 feet: 6 Type: Manual PT Plan Problem List Problem List: Safety Treatment/Plan Treatment Plan: Continue Plan of Care Treatment Plan: Bed Mobility, Education, Functional Activity Karen, Functional Strength, Group Therapy, Gait, Safety, Therapeutic Exercise, Transfers Treatment Duration: May 07, 2023 Frequency: At least 5 of 7 days/Wk (IRF) Estimated Hrs Per Day: 1.5 hours per day Patient and/or Family Agrees t: Yes Safety Risks/Education Patient Education: Gait Training, Transfer Techniques, Issued Written HEP, Correct Positioning, Safety Issues Teaching Recipient: Patient, Significant Other Teaching Methods: Demonstration, Discussion Response to Teaching: Verbalize Understanding, Return Demonstration Time Time In: 1100 Time Out: 1200 DATE: Apr 26, 2023 Total Billed Treatment Time: 60 Total Billed Treatment 1, GT (20m), EX x2 (25m) & FA (15m) YVONNE RUIZ RN HEMODIALYSIS CHARGE Apr 26, 2023 12:16
--- NOTE | 2023-04-26 15:45 | Physical Therapy Daily Note ---
PT Daily Note-Current Subjective Pt sitting in w/c in room w/Sp present upon arrival. Pt agrees to PT. Pain Location: No Pain Reported Section J - Health Conditions 1. Rarely or not at all 2. Occasionally 3. Frequently 4. Almost constantly 8. Unable to answer Pain Effect on Sleep: 1 Pain Interference with Therapy: 1 Pain Interference w/Day-to-Day: 1 Mental Status Patient Orientation: Person, Place, Time, Situation Transfers SCALE: Activities may be completed with or without assistive devices. 0-Hyflugcllt-sznbsks completes the activity by him/herself with no assistance from a helper. 5-Set-up or Clean-up Assistance-helper sets up or cleans up; patient completes activity. [place] assists only prior to or following the activity. 4-Supervision or Touching Assistance-helper provides verbal cues and/or touching/steadying and/or contact guard assistance as patient completes activity. Assistance may be provided throughout the activity or intermittently. 3-Partial/Moderate Assistance-helper does LESS THAN HALF the effort. [place] lifts, holds or supports trunk or limbs, but provides less than half the effort. 2-Substantial/Maximal Assistance-helper does MORE THAN HALF the effort. [place] lifts or holds trunk or limbs and provides more than half the effort. 5-Xvtoighwh-scwacl does ALL the effort. Patient does none of the effort to complete the activity. Or, the assistance of 2 or more helpers is required for the patient to complete the activity. If activity was not attempted, code reason: 7-Patient Refused. 9-Not Applicable-not attempted and the patient did not perform the activity before the current illness, exacerbation or injury. 10-Not Attempted due to Environmental Limitations-(lack of equipment, weather restraints, etc.). 88-Not Attempted due to Medical Conditions or Safety Concerns. Sit to Stand (QC): 4 Weight Bearing Full Weight Bearing Full Weight Bearing Exercises NuStep Minutes: 12 NuStep Workload: 4 Treatments Pt propels w/c in hallway to Therapy Gym. TF via SPT from w/c to NuStep & uses for 12m at WL 4. Pt returns to w/c and propels back to room. All needs met, Sp present. Assessment Current Status: Good Progress Pt is motivated to get stronger and improve mobility and transfers. PT Short Term Goals Short Term Goals Time Frame: Apr 30, 2023 Roll Left & Right: 6 Sit to lyin Lying to sitting on side of be: 6 Sit to stand: 6 Chair/ruf-jo-thwky transfer: 6 Toilet transfer: 6 Car transfer: 5 Walk 10 feet: 6 Walk 50 feet with two turns: 6 Walk 150 feet: 4 Walking 10ft on uneven surface: 4 1 step (curb): 4 4 steps: 4 12 steps: 4 PT Pattern Shop Supervisor Goals Intermediate Goals PT Pattern Shop Supervisor Goals Time Frame: May 07, 2023 Roll Left & Right (QC): 6 Sit to Lying (QC): 6 Lying-Sitting on Side/Bed(QC): 6 Sit to Stand (QC): 6 Chair/Jer-pd-Lkpcs Xfer(QC): 6 Toilet Transfer (QC): 6 Car Transfer (QC): 6 Does the Patient Walk: Yes Walk 10 feet (QC): 6 Walk 50ft with 2 Turns (QC): 6 Walk 150 ft (QC): 6 Walking 10ft on Uneven Surface: 6 1 Step (curb) (QC): 6 4 Steps (QC): 6 12 Steps (QC): 6 Picking up an Object (QC): 6 Does the Pt use WC or Scooter?: No Wheel 50 feet with 2 turns (QC: 6 Type: Manual Wheel 150 feet: 6 Type: Manual PT Plan Treatment/Plan Treatment Plan: Continue Plan of Care Treatment Plan: Bed Mobility, Education, Functional Activity Karen, Functional Strength, Group Therapy, Gait, Safety, Therapeutic Exercise, Transfers Treatment Duration: May 07, 2023 Frequency: At least 5 of 7 days/Wk (IRF) Estimated Hrs Per Day: 1.5 hours per day Patient and/or Family Agrees t: Yes Time Time In: 1500 Time Out: 1515 DATE: Apr 26, 2023 Total Billed Treatment Time: 15 Total Billed Treatment 1, EX (15m) YVONNE RUIZ TELEVISION STATION MANAGER Apr 26, 2023 15:45
--- NOTE | 2023-04-26 15:56 | Occupational Ther Daily Note ---
OT Current Status-Daily Note Subjective Pt lying in bed upon arrival, agreed to therapy, alert and cooperative. Pt stated "ready to get this hand better and working again" ADL-Treatment Pt agreed to shower. Pt ambulated with cane, SBA into bathroom and completed toilet hygiene, toilet transfer with SBA. Pt ambulated with cane, SBA to shower bench. Pt showered bathed self with set up assist, needing therapist to open caps to body wash due to L sided weakness, CVA. Pt transferred out of shower to chair in bathroom to dry off and completed upper and lower body dressing. Pt required verbal cues to walter shirt, therapist educated pt on placing weak side into shirt first and how when doffing shirt, weakened side is always last. Pt required Min A for lower body dressing, therapist threaded pants onto ankles and pt pulled up rest of way. Pt presented angry and agitated when attempting to dress self, therapist provided encouragement. Pt Max A with donning socks, and set up for footwear. Pt stood at sink and completed oral care with set up assist, and grooming with set up as well. Pt ambulated back to chair in room with SBA, using cane. Pt was left with BEJARANO to finish out therapy, all needs met in room. Therapy Code Descriptions/Definitions Functional [place] Measure: 0=Not Assessed/NA 4=Minimal Assistance 1=Total Assistance 5=Supervision or Setup 2=Maximal Assistance 6=Modified [place] 3=Moderate Assistance 7=Complete IndependenceSCALE: Activities may be completed with or without assistive devices. 7-Ekdorndjsr-stqibbu completes the activity by him/herself with no assistance from a helper. 5-Set-up or Clean-up Assistance-helper sets up or cleans up; patient completes activity. [place] assists only prior to or following the activity. 4-Supervision or Touching Assistance-helper provides verbal cues and/or touching/steadying and/or contact guard assistance as patient completes activity. Assistance may be provided throughout the activity or intermittently. 3-Partial/Moderate Assistance-helper does LESS THAN HALF the effort. [place] lifts, holds or supports trunk or limbs, but provides less than half the effort. 2-Substantial/Maximal Assistance-helper does MORE THAN HALF the effort. [place] lifts or holds trunk or limbs and provides more than half the effort. 0-Kgurodtic-wrhhox does ALL the effort. Patient does none of the effort to complete the activity. Or, the assistance of 2 or more helpers is required for the patient to complete the activity. If activity was not attempted, code reason: 7-Patient Refused. 9-Not Applicable-not attempted and the patient did not perform the activity before the current illness, exacerbation or injury. 10-Not Attempted due to Environmental Limitations-(lack of equipment, weather restraints, etc.). 88-Not Attempted due to Medical Conditions or Safety Concerns. Oral Hygiene (QC): 5 Shower/Bathe Self (QC): 5 Upper Body Dressing (QC): 4 Lower Body Dressing (QC): 3 On/Off Footwear: 2 Toileting Hygiene (QC): 4 Toilet Transfer (QC): 4 Education OT Patient Education: Correct positioning, Energy conservation Teaching Recipient: Patient Teaching Methods: Discussion Response to Teaching: Verbalize Understanding OT Short Term Goals Short Term Goals Time Frame: May 03, 2023 Eatin Oral hygiene: 6 Toileting hygiene: 3 (Min assist with AE) Shower/bathe self: 3 (Min assist with AE) Upper body dressin (Supervision) Lower body dressin (Supervision with AE as needed.) Putting on/taking off footwear: 4 (with AE) OT Apartment House Manager Goals Jail Goals Time Frame: May 10, 2023 Acute change in mental status: 0 Inattention: 0 Disorganized thinkin Altered level of consciousness: 6 Eating (QC): 6 Oral Hygiene (QC): 6 Toileting Hygiene (QC): 6 Shower/Bathe Self (QC): 6 Upper Body Dressing (QC): 6 Lower Body Dressing (QC): 6 On/Off Footwear (QC): 6 Additional Goals: 1-Demonstrate ADL Tasks, 2-Verbalize Understanding, 3- ImproveStrength/Karen 1=Demonstrate adherence to instructed precautions during ADL tasks. 2=Patient will verbalize/demonstrate understanding of assistive de vices/modifications for ADL. 3=Patient will improve strength/tolerance for activity to enable patient to perform ADL's. OT Education/Plan Discharge Recommendations Plan/Recommendations: Continue POC Treatment Plan/Plan of Care Patient would benefit from OT for education, treatment and training to promote independence in ADL's, mobility, safety and/or upper extremity function for ADL's. Plan of Care: ADL Retraining, Functional Mobility, UE Funct Exercise/Act Treatment Duration: May 10, 2023 Frequency: At least 5 of 7 days/Wk (IRF) Estimated Hrs Per Day: 1.5 hours per day Agreement: Yes Rehab Potential: Good Time Start Time: 09:00 Stop Time: 09:45 DATE: Apr 26, 2023 Total Time Billed (hr/min): 45 Billed Treatment Time 1 visit ADL 3 (45) Juliane Saab COTA Apr 26, 2023 15:56
[2023-04-26] MEDS: ENOXAPARIN 40 MG/0.4 ML (LOVENOX) SYR SC SCH (16:44)
[2023-04-26 20:27] VITALS: BP 146/58
[2023-04-27] MEDS: inSUlin ASPART (NovoLOG) 1 UNIT/0.01 ML (CHARGE PER UNIT) SC SCH ×4 (05:55→20:02)
[2023-04-27] MEDS: inSUlin NPH/REG (NovoLIN 70/30) CHARGE PER UNIT SQ SCH (06:27)
[2023-04-27] MEDS: metFORMIN 500 MG (GLUCOPHAGE) TAB PO SCH ×2 (06:49→17:34)
[2023-04-27] MEDS: GLIMEPIRIDE 2 MG (AMARYL) TAB PO SCH (06:49)
[2023-04-27] MEDS: CLOPIDOGREL 75 MG (PLAVIX) TABLET PO SCH (07:55)
[2023-04-27] MEDS: ASPIRIN E.C. 81 MG (ECOTRIN) TAB PO SCH (07:55)
[2023-04-27] MEDS: EMPAGLIFLOZIN 10 MG TABLET (JARDIANCE) PO SCH (07:55)
[2023-04-27] MEDS: LOSARTAN 100 MG (COZAAR) TABLET PO SCH (07:58)
[2023-04-27] MEDS: DOCUSATE SODIUM 100 MG (COLACE) CAP PO SCH ×2 (07:58→20:35)
[2023-04-27 08:00] VITALS: BP 164/74
--- NOTE | 2023-04-27 11:14 | Physical Therapy Daily Note ---
PT Daily Note-Current Subjective Pt reports he is doing well this morning and is agreeable to PT. Pt denies any pain. Pain Numeric Pain Scale: 0-No Pain Location: No Pain Reported Section J - Health Conditions 1. Rarely or not at all 2. Occasionally 3. Frequently 4. Almost constantly 8. Unable to answer Pain Effect on Sleep: 1 Pain Interference with Therapy: 1 Pain Interference w/Day-to-Day: 1 Transfers SCALE: Activities may be completed with or without assistive devices. 0-Waaydznsqe-lyaviua completes the activity by him/herself with no assistance from a helper. 5-Set-up or Clean-up Assistance-helper sets up or cleans up; patient completes activity. [place] assists only prior to or following the activity. 4-Supervision or Touching Assistance-helper provides verbal cues and/or touching/steadying and/or contact guard assistance as patient completes activity. Assistance may be provided throughout the activity or intermittently. 3-Partial/Moderate Assistance-helper does LESS THAN HALF the effort. [place] lifts, holds or supports trunk or limbs, but provides less than half the effort. 2-Substantial/Maximal Assistance-helper does MORE THAN HALF the effort. [place] lifts or holds trunk or limbs and provides more than half the effort. 0-Odjvmhxpe-lttneb does ALL the effort. Patient does none of the effort to complete the activity. Or, the assistance of 2 or more helpers is required for the patient to complete the activity. If activity was not attempted, code reason: 7-Patient Refused. 9-Not Applicable-not attempted and the patient did not perform the activity before the current illness, exacerbation or injury. 10-Not Attempted due to Environmental Limitations-(lack of equipment, weather restraints, etc.). 88-Not Attempted due to Medical Conditions or Safety Concerns. Sit to Stand (QC): 4 Chair/Rpp-sf-Epyxf Xfer(QC): 4 Weight Bearing Full Weight Bearing Full Weight Bearing Gait Training Does the Patient Walk?: Yes Distance: 160ft Walk 10 feet (QC): 4 Walk 50 ft with 2 Turns(QC): 4 Walk 150 ft (QC): 4 Gait Persons Needed: 1 Gait Assistive Device: Cane Large Base Quad Wheelchair Training Does the Pt Use a Wheelchair?: Yes Wheel 50 ft with 2 turns (QC): 4 Type of Wheelchair: Manual Treatments Pt completed functional transfers with SBA and Min v/c for safety and proper hand placement. Pt ambulated 50ft, 160ft, and 100ft with the QC and CGA. Pt completed seated B LE Ther Ex x 15 reps each with the red Tband. Pt completed sit to stand x 10 reps. Pt completed step-ups x 10 reps. Pt completed standing B LE Ther Ex x 10 reps each with R UE support and CGA/SBA. Pt required several seated rest breaks during standing Ther Ex. Pt completed w/c mobility x 100ft with SBA/Mod I. Pt left in room, sitting in the w/c, with present. Call light in reach and all needs met. Assessment Current Status: Good Progress Pt tolerated PT well, but becomes fatigued easily and requires several seated rest breaks throughout treatment session. The pt would benefit from a w/c upon d/c from ARU. The pt has mobility limitations that significantly impair his ability to complete functional mobility, walking, balance tasks, and ADLs. The pts mobility limitations can not be helped with a cane or walker, secondary to decreased functional activity tolerance, fatiguing easily, and balance issues. Pt pts residence has enough room to maneuver the w/c safely and independently. The pt is safely able to use the w/c on his own with SBA/Mod I; pts is able to assist as needed with w/c mobility. PT Short Term Goals Short Term Goals Time Frame: Apr 30, 2023 Roll Left & Right: 6 Sit to lyin Lying to sitting on side of be: 6 Sit to stand: 6 Chair/czh-ht-kauje transfer: 6 Toilet transfer: 6 Car transfer: 5 Walk 10 feet: 6 Walk 50 feet with two turns: 6 Walk 150 feet: 4 Walking 10ft on uneven surface: 4 1 step (curb): 4 4 steps: 4 12 steps: 4 PT Residential Goals Tax Commissioner Goals PT Tax Commissioner Goals Time Frame: May 07, 2023 Roll Left & Right (QC): 6 Sit to Lying (QC): 6 Lying-Sitting on Side/Bed(QC): 6 Sit to Stand (QC): 6 Chair/Ndr-np-Prrqn Xfer(QC): 6 Toilet Transfer (QC): 6 Car Transfer (QC): 6 Does the Patient Walk: Yes Walk 10 feet (QC): 6 Walk 50ft with 2 Turns (QC): 6 Walk 150 ft (QC): 6 Walking 10ft on Uneven Surface: 6 1 Step (curb) (QC): 6 4 Steps (QC): 6 12 Steps (QC): 6 Picking up an Object (QC): 6 Does the Pt use WC or Scooter?: No Wheel 50 feet with 2 turns (QC: 6 Type: Manual Wheel 150 feet: 6 Type: Manual PT Plan Problem List Problem List: Activity Tolerance, Functional Strength, Safety, Balance, Gait, Transfer, Bed Mobility Treatment/Plan Treatment Plan: Continue Plan of Care Treatment Plan: Bed Mobility, Education, Functional Activity Karen, Functional Strength, Group Therapy, Gait, Safety, Therapeutic Exercise, Transfers Treatment Duration: May 07, 2023 Frequency: At least 5 of 7 days/Wk (IRF) Estimated Hrs Per Day: 1.5 hours per day Patient and/or Family Agrees t: Yes Safety Risks/Education Patient Education: Gait Training, Transfer Techniques, Correct Positioning, W/C Management, Safety Issues Teaching Recipient: Patient, Family Teaching Methods: Demonstration, Discussion Response to Teaching: Verbalize Understanding, Return Demonstration, Reinforcement Needed Discharge Recommendations Therapy Discharge Recommendati: Home & Family Equpiment Recommendations-D/C: Quad Cane, Shower Chair, Manual Wheelchair Discharge Status/Home Program Cont per POC Barriers to Progress L sided weakness; endurance Target Placement Home with Time Time In: 800 Time Out: 930 DATE: Apr 27, 2023 Total Billed Treatment Time: 90 Total Billed Treatment 90 min 1 visit EX x 4 FA x 1 GT x 1 LORENZO ARAUZ PT Apr 27, 2023 11:14
--- NOTE | 2023-04-27 12:50 | ST Cognitive Linguistic Eval ---
Speech Evaluation-General Medical Diagnosis CVA (L) side weakness Onset Date: Apr 21, 2023 Therapy Diagnosis Therapy Diagnosis: Dysarthria Precautions Precautions: Fall Precautions/Isolations: Fall Prevention, Standard Precautions Referral Referring Physician: Dr. June Reason for Referral: Evaluation/Treatment Medical History Pertinent Medical History: CAD, CVA, DM, HTN, Renal Insufficiency CA, CVA, DM, HTN, renal insufficiency, low vision left eye Current History Pt presented with stroke like symptoms while at home on 04/21/23. Pt went to [facility] in [place] and was diagnosed with a CVA. Pt was admitted to [facility] IRU on 04/24/23. Reviewed History: Yes Social History Current Living Status: Spouse (Also with 21 year old son) Speech PLF-Current Status Prior Level of Function Pt lived at home with his life. Pt managed his own medications. Pt states his managed the finances. Subjective Pt sitting up on edge of bed with present throughout the evaluation. Pt denies difficulty with swallowing. Pt states he slurs his speech and it is mild but he would like to work on it while on IRU. Pt pleasant and cooperative throughout the evaluation. Language Eval: Auditory Comprehends Simple Yes/No Ques: Functional Follows 1-Step Commands: Functional Follows Complex Directions: Functional Follows General Conversations: Functional Language Eval: Verbal Language Completes Spontaneous Greeting: Functional Word Finding: Functional Requests Basic Needs: Functional Expresses Complex Ideas: Functional Cognitive Patient Orientation Pt oriented 01/01 Objective Cognitive Domain Memory: Mild Problem Solving: Functional Executive Functions: WNL Visuospatial Skills: WNL Composite Severity Rating: WNL Clock Drawing Severity Rating: WNL Score: 28 Objective Formal/Standardized Tests SLUMS Results - WNL Oral Motor/Speech Production Pt presents with MILD dysarthria characterized by left sided facial droop and weakness, slight left lingual deviation, slight reduced labial ROM, and occasional slurring of words. During diadochokinesis tasks, pt with difficulty on /tuh/ and /kuh/. Pt also with difficulty on /puhtuhkuh/. Pt demonstrates slight inconsistencies with productions. Impression Pt appears to perform WNL on cognitive tasks. Pt scored a 28/30 on the SLUM. Pt with difficulty recalling 2 words on the delayed recall. Pt able to recall with verbal cue. Pt completes medication management task of putting meds into a pill organizer with 100% accuracy independently. Speech Short Term Goals Short Term Goals Short Term Goals Pt to complete oral motor exercises with 80% accuracy with min verbal cues. Speech Nursing Home Goals Nursing Home Goals Pt to complete oral motor exercises for dysarthria and speech tasks with 80% accuracy min verbal cues. Speech-Plan Patient/Family Goals Patient/Family Goals: Pt's goal is to return home with following d/c from IRU. Treatment Plan Speech Therapy Treatment Plan: Continue Plan of Care Treatment Duration: Apr 26, 2023 Frequency: 5 times per week Estimated Hrs Per Day: .5 hour per day Rehab Potential: Good Pt/Family Agrees to Plan: Yes Safety Risks/Education Teaching Recipient: Patient, Family Teaching Methods: Discussion Response to Teaching: Verbalize Understanding Education Topics Provided: Pt and educated on role of MUNITIONS HANDLER, purpose of evaluation, results, and recommendations. Pt and receptive and verbalized understanding. Time Speech Therapy Time In: 11:00 Speech Therapy Time Out: 11:30 DATE: Apr 27, 2023 Total Billed Time: 30 Billed Treatment Time S/L Shilpa Heck Speech Therapy Apr 27, 2023 12:50
--- NOTE | 2023-04-27 12:56 | PM&R Progress Note ---
Subjective HPI/CC On Admission Date Seen by Provider: Apr 27, 2023 Time Seen by Provider: 10:00 Subjective/Events-last exam 04/27/2023: Patient doing a lot better Moving left arm and hand better Walking really well No falls 04/26/2023: Participation is good Recovering nicely Blood sugars reviewed No pain Uses CPAP 04/25/2023: Patient in good spirits today Family friends visiting Reviewed labs Blood sugars better No falls Pain is controlled Added on hemoglobin A1c Review of Systems General: Fatigue, Malaise Neurological: Weakness, Incoordination Objective Exam Vital Signs Vital Signs Date Time Temp Pulse Resp B/P (MAP) Pulse Ox O2 Delivery O2 Flow Rate FiO2 04/27/23 19:38 36.2 66 16 185/84 (117) 95 Room Air 04/27/23 02:43 30.00 Capillary Refill : General Appearance: No Apparent Distress, WD/WN, Chronically ill HEENT: PERRL/EOMI, Normal ENT Inspection, Pharynx Normal Neck: Full Range of Motion, Normal Inspection, Non Tender, Supple, Carotid Bruit Respiratory: Chest Non Tender, Lungs Clear, Normal Breath Sounds, No Accessory Muscle Use, No Respiratory Distress Cardiovascular: Regular Rate, Rhythm, No Edema, No Gallop, No JVD, No Murmur, Normal Peripheral Pulses Gastrointestinal: Normal Bowel Sounds, No Organomegaly, No Pulsatile Mass, Non Tender, Soft Back: Normal Inspection, No CVA Tenderness, No Vertebral Tenderness Extremity: Normal Capillary Refill, Normal Inspection, Normal Range of Motion, Non Tender, No Calf Tenderness, No Pedal Edema Neurologic/Psychiatric: Alert, Oriented x3, Normal Mood/Affect, bilingual patient support caseworker II-XII Norm as Tested, Abnormal Gait, Motor Weakness (Left arm 3/5 left leg 4/5) Skin: Normal Color, Warm/Dry Lymphatic: No Adenopathy Results/Procedures Lab Patient resulted labs reviewed. FIM Transfers Therapy Code Descriptions/Definitions Functional [place] Measure: 0=Not Assessed/NA 4=Minimal Assistance 1=Total Assistance 5=Supervision or Setup 2=Maximal Assistance 6=Modified [place] 3=Moderate Assistance 7=Complete IndependenceSCALE: Activities may be completed with or without assistive devices. 3-Smyhofkkgq-fgjsknj completes the activity by him/herself with no assistance from a helper. 5-Set-up or Clean-up Assistance-helper sets up or cleans up; patient completes activity. [place] assists only prior to or following the activity. 4-Supervision or Touching Assistance-helper provides verbal cues and/or touching/steadying and/or contact guard assistance as patient completes activity. Assistance may be provided throughout the activity or intermittently. 3-Partial/Moderate Assistance-helper does LESS THAN HALF the effort. [place] lifts, holds or supports trunk or limbs, but provides less than half the effort. 2-Substantial/Maximal Assistance-helper does MORE THAN HALF the effort. [place] lifts or holds trunk or limbs and provides more than half the effort. 1-Gtawjglcq-mqsxsl does ALL the effort. Patient does none of the effort to complete the activity. Or, the assistance of 2 or more helpers is required for the patient to complete the activity. If activity was not attempted, code reason: 7-Patient Refused. 9-Not Applicable-not attempted and the patient did not perform the activity before the current illness, exacerbation or injury. 10-Not Attempted due to Environmental Limitations-(lack of equipment, weather restraints, etc.). 88-Not Attempted due to Medical Conditions or Safety Concerns. Roll Left to Right (QC): 6 Sit to Lying (QC): 4 Sit to Stand (QC): 4 Chair/Iqt-ri-Vcvaw Xfer(QC): 4 Car Transfer (QC): 4 Gait Training Does the Patient Walk?: Yes Distance: 160ft Walk 10 feet (QC): 4 Walk 50 ft with 2 Turns(QC): 4 Walk 150 ft (QC): 4 Walking 10ft/uneven surface-QC: 4 Gait Persons Needed: 1 Gait Assistive Device: Cane Large Base Quad Wheelchair Training Does the Pt Use a Wheelchair?: Yes Wheel 50 ft with 2 turns (QC): 4 Wheel 150 ft (QC): 9 Type of Wheelchair: Manual Stair Training #of Steps: 12 1 Step (curb) (QC): 4 4 Steps (QC): 4 12 Steps (QC): 4 Balance Picking up an Object (QC): 4 ADL-Treatment Eating (QC): 5 Oral Hygiene (QC): 5 Shower/Bathe Self (QC): 5 Upper Body Dressing (QC): 4 Lower Body Dressing (QC): 3 On/Off Footwear (QC): 2 Toileting Hygiene (QC): 4 Toilet Transfer (QC): 4 Assessment/Plan Assessment and Plan Assess & Plan/Chief Complaint Assessment: CVA with left-sided weakness with infarct confirmed on MRI placed on Plavix and aspirin and statin Diabetes insulin-dependent eje-ie-egwnjfq Hypertension Hyperlipidemia CAD previous bypass Carotid stenosis with stable carotid ultrasound performed on 04/21/[address] 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
--- NOTE | 2023-04-27 13:07 | Occupational Ther Daily Note ---
OT Current Status-Daily Note Subjective pt was found in wheelchair in room upon arrival, alert and cooperative, agreed to therapy. ADL-Treatment Pt was introduced, to AE for lower body dressing and footwear, and pt "don't want to mess with that stuff". Therapist demonstrated a one handed way to walter socks on to make it easier on pt to dress self independently. Pt, donned sock onto R foot with set up assist, pt needed Mariah on L, disregarding the method pt just preformed to walter R sock. Pt then doffed lower body clothing with no assistance required. With Mariah to get lower body dressing getting stuck on L foot, and therapist demonstrated using AE (tracer powder blender to pull pants over feet and up the legs, Pt attempted to use AE tracer powder blender but got agitated and then just pulled them on, no assistance given by therapist, SBA for safety due to sitting balance. Pt them completed wheelchair mobility from room to therapy gym. Pt worked on a lot of neruo re-ed exercises, as well as sitting balance on mat in gym, reaching and crossing midline for daily function without breaking sitting balance. PROM on L UE only educating pt on importance of that activity to regain function of that effected side. Pt is motivated to work in therapy, and family is present and family educated on PROM exercises to work on at home and in down time. Pt ambulated back to room from therapy gym using cane, SBA. Pt was left in room in bed, all needs met, call light and phone with in reach. Therapy Code Descriptions/Definitions Functional [place] Measure: 0=Not Assessed/NA 4=Minimal Assistance 1=Total Assistance 5=Supervision or Setup 2=Maximal Assistance 6=Modified [place] 3=Moderate Assistance 7=Complete IndependenceSCALE: Activities may be completed with or without assistive devices. 7-Jpzkvbdjyk-dogrtjh completes the activity by him/herself with no assistance from a helper. 5-Set-up or Clean-up Assistance-helper sets up or cleans up; patient completes activity. [place] assists only prior to or following the activity. 4-Supervision or Touching Assistance-helper provides verbal cues and/or touching/steadying and/or contact guard assistance as patient completes activity. Assistance may be provided throughout the activity or intermittently. 3-Partial/Moderate Assistance-helper does LESS THAN HALF the effort. [place] lifts, holds or supports trunk or limbs, but provides less than half the effort. 2-Substantial/Maximal Assistance-helper does MORE THAN HALF the effort. [place] lifts or holds trunk or limbs and provides more than half the effort. 4-Fobtfwaty-pwpvnb does ALL the effort. Patient does none of the effort to complete the activity. Or, the assistance of 2 or more helpers is required for the patient to complete the activity. If activity was not attempted, code reason: 7-Patient Refused. 9-Not Applicable-not attempted and the patient did not perform the activity before the current illness, exacerbation or injury. 10-Not Attempted due to Environmental Limitations-(lack of equipment, weather restraints, etc.). 88-Not Attempted due to Medical Conditions or Safety Concerns. Lower Body Dressing (QC): 4 On/Off Footwear: 3 Education OT Patient Education: Correct positioning, Energy conservation, Exercise program, Progress toward Goal/Update tx plan, Purpose of tx/functional activities Teaching Recipient: Patient, Family Teaching Methods: Demonstration, Discussion Response to Teaching: Verbalize Understanding OT Short Term Goals Short Term Goals Time Frame: May 03, 2023 Eatin Oral hygiene: 6 Toileting hygiene: 3 (Min assist with AE) Shower/bathe self: 3 (Min assist with AE) Upper body dressin (Supervision) Lower body dressin (Supervision with AE as needed.) Putting on/taking off footwear: 4 (with AE) OT Supervisor C[employer] Goals Mcc Goals Time Frame: May 10, 2023 Acute change in mental status: 0 Inattention: 0 Disorganized thinkin Altered level of consciousness: 6 Eating (QC): 6 Oral Hygiene (QC): 6 Toileting Hygiene (QC): 6 Shower/Bathe Self (QC): 6 Upper Body Dressing (QC): 6 Lower Body Dressing (QC): 6 On/Off Footwear (QC): 6 Additional Goals: 1-Demonstrate ADL Tasks, 2-Verbalize Understanding, 3- ImproveStrength/Karen 1=Demonstrate adherence to instructed precautions during ADL tasks. 2=Patient will verbalize/demonstrate understanding of assistive devices/modifications for ADL. 3=Patient will improve strength/tolerance for activity to enable patient to perform ADL's. OT Education/Plan Problem List/Assessment Assessment: Decreased Activ Tolerance, Decreased UE Strength, Restricted Funct UE ROM Discharge Recommendations Plan/Recommendations: Continue POC Treatment Plan/Plan of Care Patient would benefit from OT for education, treatment and training to promote independence in ADL's, mobility, safety and/or upper extremity function for ADL's. Plan of Care: ADL Retraining, Functional Mobility, UE Funct Exercise/Act Treatment Duration: May 10, 2023 Frequency: At least 5 of 7 days/Wk (IRF) Estimated Hrs Per Day: 1.5 hours per day Agreement: Yes Rehab Potential: Good Time Start Time: 09:30 Stop Time: 10:45 DATE: Apr 27, 2023 Total Time Billed (hr/min): 75 Billed Treatment Time 1 visit ADL 2 (30) NM 3 (45) Juliane Saab COTA Apr 27, 2023 13:07
[2023-04-27] MEDS: ENOXAPARIN 40 MG/0.4 ML (LOVENOX) SYR SC SCH (17:34)
[2023-04-27 19:38] VITALS: BP 185/84
[2023-04-27] MEDS: polyethylene glycoL POWDER 17 GM (MIRALAX) PACK PO SCH (20:34)
[2023-04-27] MEDS: SENNA W/DOCUSATE (SENOKOT S) TABLET PO SCH (20:35)
--- NOTE | 2023-04-28 06:02 | PM&R Progress Note ---
Subjective HPI/CC On Admission Date Seen by Provider: Apr 28, 2023 Time Seen by Provider: 12:30 Subjective/Events-last exam 04/28/2023: Patient doing much better Left hand and arm are frustrating him Working hard with therapy No falls No pain Blood sugars improved 04/27/2023: Patient doing a lot better Moving left arm and hand better Walking really well No falls 04/26/2023: Participation is good Recovering nicely Blood sugars reviewed No pain Uses CPAP 04/25/2023: Patient in good spirits today Family friends visiting Reviewed labs Blood sugars better No falls Pain is controlled Added on hemoglobin A1c Review of Systems General: Fatigue, Malaise Objective Exam Vital Signs Vital Signs Date Time Temp Pulse Resp B/P (MAP) Pulse Ox O2 Delivery O2 Flow Rate FiO2 04/28/23 20:15 36.2 53 18 155/69 (97) 95 Room Air 04/27/23 02:43 30.00 Capillary Refill : General Appearance: No Apparent Distress, WD/WN, Chronically ill HEENT: PERRL/EOMI, Normal ENT Inspection, Pharynx Normal Neck: Full Range of Motion, Normal Inspection, Non Tender, Supple, Carotid Bruit Respiratory: Chest Non Tender, Lungs Clear, Normal Breath Sounds, No Accessory Muscle Use, No Respiratory Distress Cardiovascular: Regular Rate, Rhythm, No Edema, No Gallop, No JVD, No Murmur, Normal Peripheral Pulses Gastrointestinal: Normal Bowel Sounds, No Organomegaly, No Pulsatile Mass, Non Tender, Soft Back: Normal Inspection, No CVA Tenderness, No Vertebral Tenderness Extremity: Normal Capillary Refill, Normal Inspection, Normal Range of Motion, Non Tender, No Calf Tenderness, No Pedal Edema Neurologic/Psychiatric: Alert, Oriented x3, Normal Mood/Affect, family and consumer sciences professor II-XII Norm as Tested, Abnormal Gait, Motor Weakness (Left arm 3/5 left leg 4/5) Skin: Normal Color, Warm/Dry Lymphatic: No Adenopathy Results/Procedures Lab Patient resulted labs reviewed. FIM Transfers Therapy Code Descriptions/Definitions Functional [place] Measure: 0=Not Assessed/NA 4=Minimal Assistance 1=Total Assistance 5=Supervision or Setup 2=Maximal Assistance 6=Modified [place] 3=Moderate Assistance 7=Complete IndependenceSCALE: Activities may be completed with or without assistive devices. 3-Fercnqomwy-nfpqysv completes the activity by him/herself with no assistance from a helper. 5-Set-up or Clean-up Assistance-helper sets up or cleans up; patient completes activity. [place] assists only prior to or following the activity. 4-Supervision or Touching Assistance-helper provides verbal cues and/or touching /steadying and/or contact guard assistance as patient completes activity. Assistance may be provided throughout the activity or intermittently. 3-Partial/Moderate Assistance-helper does LESS THAN HALF the effort. [place] lifts, holds or supports trunk or limbs, but provides less than half the effort. 2-Substantial/Maximal Assistance-helper does MORE THAN HALF the effort. [place] lifts or holds trunk or limbs and provides more than half the effort. 9-Eyuhtpofe-yilgvh does ALL the effort. Patient does none of the effort to complete the activity. Or, the assistance of 2 or more helpers is required for the patient to complete the activity. If activity was not attempted, code reason: 7-Patient Refused. 9-Not Applicable-not attempted and the patient did not perform the activity before the current illness, exacerbation or injury. 10-Not Attempted due to Environmental Limitations-(lack of equipment, weather restraints, etc.). 88-Not Attempted due to Medical Conditions or Safety Concerns. Roll Left to Right (QC): 6 Sit to Lying (QC): 4 Sit to Stand (QC): 4 Chair/Rlp-zw-Yijsd Xfer(QC): 4 Car Transfer (QC): 4 Gait Training Does the Patient Walk?: Yes Distance: 160ft Walk 10 feet (QC): 4 Walk 50 ft with 2 Turns(QC): 4 Walk 150 ft (QC): 4 Walking 10ft/uneven surface-QC: 4 Gait Persons Needed: 1 Gait Assistive Device: Cane Large Base Quad Wheelchair Training Does the Pt Use a Wheelchair?: Yes Wheel 50 ft with 2 turns (QC): 4 Wheel 150 ft (QC): 9 Type of Wheelchair: Manual Stair Training #of Steps: 12 1 Step (curb) (QC): 4 4 Steps (QC): 4 12 Steps (QC): 4 Balance Picking up an Object (QC): 4 ADL-Treatment Eating (QC): 5 Oral Hygiene (QC): 5 Shower/Bathe Self (QC): 5 Upper Body Dressing (QC): 4 Lower Body Dressing (QC): 4 On/Off Footwear (QC): 3 Toileting Hygiene (QC): 4 Toilet Transfer (QC): 4 Assessment/Plan Assessment and Plan Assess & Plan/Chief Complaint Assessment: 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
[2023-04-28] MEDS: metFORMIN 500 MG (GLUCOPHAGE) TAB PO SCH ×2 (06:50→17:07)
[2023-04-28] MEDS: GLIMEPIRIDE 2 MG (AMARYL) TAB PO SCH (06:50)
[2023-04-28] MEDS: inSUlin ASPART (NovoLOG) 1 UNIT/0.01 ML (CHARGE PER UNIT) SC SCH ×4 (06:51→21:32)
[2023-04-28] MEDS: inSUlin NPH/REG (NovoLIN 70/30) CHARGE PER UNIT SQ SCH (06:51)
[2023-04-28 08:00] VITALS: BP 158/72
[2023-04-28] MEDS: CLOPIDOGREL 75 MG (PLAVIX) TABLET PO SCH (08:00)
[2023-04-28] MEDS: ASPIRIN E.C. 81 MG (ECOTRIN) TAB PO SCH (08:00)
[2023-04-28] MEDS: LOSARTAN 100 MG (COZAAR) TABLET PO SCH (08:00)
[2023-04-28] MEDS: EMPAGLIFLOZIN 10 MG TABLET (JARDIANCE) PO SCH (08:01)
[2023-04-28] MEDS: polyethylene glycoL POWDER 17 GM (MIRALAX) PACK PO SCH ×2 (08:01→21:32)
[2023-04-28] MEDS: DOCUSATE SODIUM 100 MG (COLACE) CAP PO SCH ×2 (08:01→21:32)
[2023-04-28] MEDS: SENNA W/DOCUSATE (SENOKOT S) TABLET PO SCH ×2 (08:01→21:32)
--- NOTE | 2023-04-28 13:01 | Occupational Ther Daily Note ---
OT Current Status-Daily Note Subjective Pt was found in wheelchair in room, alert and cooperative, and agreed to therapy. No pain mentioned Mental Status/Objective Patient Orientation: Person, Place, Time, Situation ADL-Treatment Pt ambulated with cane and SBA to therapy gym. Therapist focused on neuro re- education. Pt completed wt bearing through effected arm for a 10 mins, with 30 second increments. Therapist performed passive ROM on effect hand and wrist. Pt also completed dynamic sitting balance on the mat reaching and leaning for cones and placing them into various positions, while therapist SBA for safety, skilled instruction for correct technique for max benefit. Pt then ambulated with cane, CGA, with therapist and family member to show different types of shower bench chairs for home use, and to practice transferring in and out of tub shower. Pt then ambulated back to room with cane CGA. pt was left in chair in room, all needs met, call light and phone within reach. Therapy Code Descriptions/Definitions Functional [place] Measure: 0=Not Assessed/NA 4=Minimal Assistance 1=Total Assistance 5=Supervision or Setup 2=Maximal Assistance 6=Modified [place] 3=Moderate Assistance 7=Complete IndependenceSCALE: Activities may be completed with or without assistive devices. 4-Zpujjzbikw-pgbhgwe completes the activity by him/herself with no assistance from a helper. 5-Set-up or Clean-up Assistance-helper sets up or cleans up; patient completes activity. [place] assists only prior to or following the activity. 4-Supervision or Touching Assistance-helper provides verbal cues and/or touching/steadying and/or contact guard assistance as patient completes activity. Assistance may be provided throughout the activity or intermittently. 3-Partial/Moderate Assistance-helper does LESS THAN HALF the effort. [place] lifts, holds or supports trunk or limbs, but provides less than half the effort. 2-Substantial/Maximal Assistance-helper does MORE THAN HALF the effort. [place] lifts or holds trunk or limbs and provides more than half the effort. 3-Rzsvjtnmf-sejmzn does ALL the effort. Patient does none of the effort to complete the activity. Or, the assistance of 2 or more helpers is required for the patient to complete the activity. If activity was not attempted, code reason: 7-Patient Refused. 9-Not Applicable-not attempted and the patient did not perform the activity before the current illness, exacerbation or injury. 10-Not Attempted due to Environmental Limitations-(lack of equipment, weather restraints, etc.). 88-Not Attempted due to Medical Conditions or Safety Concerns. Education OT Patient Education: Correct positioning, Energy conservation, Progress toward Goal/Update tx plan, Purpose of tx/functional activities Teaching Recipient: Patient, Family Teaching Methods: Demonstration, Discussion Response to Teaching: Verbalize Understanding OT Short Term Goals Short Term Goals Time Frame: May 03, 2023 Eatin Oral hygiene: 6 Toileting hygiene: 3 (Min assist with AE) Shower/bathe self: 3 (Min assist with AE) Upper body dressin (Supervision) Lower body dressin (Supervision with AE as needed.) Putting on/taking off footwear: 4 (with AE) OT Snf Goals Insurance Special Agent Goals Time Frame: May 10, 2023 Acute change in mental status: 0 Inattention: 0 Disorganized thinkin Altered level of consciousness: 6 Eating (QC): 6 Oral Hygiene (QC): 6 Toileting Hygiene (QC): 6 Shower/Bathe Self (QC): 6 Upper Body Dressing (QC): 6 Lower Body Dressing (QC): 6 On/Off Footwear (QC): 6 Additional Goals: 1-Demonstrate ADL Tasks, 2-Verbalize Understanding, 3- ImproveStrength/Karen 1=Demonstrate adherence to instructed precautions during ADL tasks. 2=Patient will verbalize/demonstrate understanding of assistive devices/modifications for ADL. 3=Patient will improve strength/tolerance for activity to enable patient to perform ADL's. OT Education/Plan Problem List/Assessment Assessment: Impaired Funct Balance Discharge Recommendations Plan/Recommendations: Continue POC Treatment Plan/Plan of Care Patient would benefit from OT for education, treatment and training to promote independence in ADL's, mobility, safety and/or upper extremity function for ADL' s. Plan of Care: ADL Retraining, Functional Mobility, UE Funct Exercise/Act Treatment Duration: May 10, 2023 Frequency: At least 5 of 7 days/Wk (IRF) Estimated Hrs Per Day: 1.5 hours per day Agreement: Yes Rehab Potential: Good Time Start Time: 09:15 Stop Time: 10:15 DATE: Apr 28, 2023 Total Time Billed (hr/min): 60 Billed Treatment Time 1 visit FA 2 (30) CINDY 2 (30) Juliane Saab COTA Apr 28, 2023 13:01
--- NOTE | 2023-04-28 13:29 | Physical Therapy Daily Note ---
PT Daily Note-Current Subjective Pt reports he is doing well this morning and is agreeable to PT. Pt denies pain, but reports being tired from yesterdays therapy. Pain Numeric Pain Scale: 0-No Pain Location: No Pain Reported Section J - Health Conditions 1. Rarely or not at all 2. Occasionally 3. Frequently 4. Almost constantly 8. Unable to answer Pain Effect on Sleep: 1 Pain Interference with Therapy: 1 Pain Interference w/Day-to-Day: 1 Transfers SCALE: Activities may be completed with or without assistive devices. 1-Jxmmodxkup-aexxbth completes the activity by him/herself with no assistance from a helper. 5-Set-up or Clean-up Assistance-helper sets up or cleans up; patient completes activity. [place] assists only prior to or following the activity. 4-Supervision or Touching Assistance-helper provides verbal cues and/or touching/steadying and/or contact guard assistance as patient completes activity. Assistance may be provided throughout the activity or intermittently. 3-Partial/Moderate Assistance-helper does LESS THAN HALF the effort. [place] l ifts, holds or supports trunk or limbs, but provides less than half the effort. 2-Substantial/Maximal Assistance-helper does MORE THAN HALF the effort. [place] lifts or holds trunk or limbs and provides more than half the effort. 1-Qogcgyqoe-phgnkl does ALL the effort. Patient does none of the effort to complete the activity. Or, the assistance of 2 or more helpers is required for t he patient to complete the activity. If activity was not attempted, code reason: 7-Patient Refused. 9-Not Applicable-not attempted and the patient did not perform the activity before the current illness, exacerbation or injury. 10-Not Attempted due to Environmental Limitations-(lack of equipment, weather restraints, etc.). 88-Not Attempted due to Medical Conditions or Safety Concerns. Sit to Stand (QC): 4 Chair/Tqo-ft-Wvkgn Xfer(QC): 4 Weight Bearing Full Weight Bearing Full Weight Bearing Gait Training Does the Patient Walk?: Yes Distance: 150ft Walk 10 feet (QC): 4 Walk 50 ft with 2 Turns(QC): 4 Walk 150 ft (QC): 4 Gait Persons Needed: 1 Gait Assistive Device: Cane Small Base Quad Wheelchair Training Does the Pt Use a Wheelchair?: Yes Wheel 50 ft with 2 turns (QC): 4 Wheel 150 ft (QC): 4 Type of Wheelchair: Manual Treatments Pt completed functional transfers with SBA and Min v/c for safety. Pt ambulated 150ft x 2 with the QC and CGA. Pt completed w/c mobility (forwards and backwards) x 300ft with SBA. Pt completed seated B LE Ther Ex x 15 reps each with the red Tband. Pt completed standing B LE Ther Ex x 10 reps each with R UE support and SBA/CGA. Pt required 3 short seated rest breaks during standing Ther Ex. Pt completed step-ups x 10 for B LE. Pt left in room, sitting in the w/c, call light in reach, all needs met, and present. Assessment Current Status: Good Progress Pt tolerated PT well with good effort PT Short Term Goals Short Term Goals Time Frame: Apr 30, 2023 Roll Left & Right: 6 Sit to lyin Lying to sitting on side of be: 6 Sit to stand: 6 Chair/jvi-ie-dxstx transfer: 6 Toilet transfer: 6 Car transfer: 5 Walk 10 feet: 6 Walk 50 feet with two turns: 6 Walk 150 feet: 4 Walking 10ft on uneven surface: 4 1 step (curb): 4 4 steps: 4 12 steps: 4 PT Fpc Goals Fpc Goals PT Practicing Md Anesthesiologist Goals Time Frame: May 07, 2023 Roll Left & Right (QC): 6 Sit to Lying (QC): 6 Lying-Sitting on Side/Bed(QC): 6 Sit to Stand (QC): 6 Chair/Ucn-co-Pixzz Xfer(QC): 6 Toilet Transfer (QC): 6 Car Transfer (QC): 6 Does the Patient Walk: Yes Walk 10 feet (QC): 6 Walk 50ft with 2 Turns (QC): 6 Walk 150 ft (QC): 6 Walking 10ft on Uneven Surface: 6 1 Step (curb) (QC): 6 4 Steps (QC): 6 12 Steps (QC): 6 Picking up an Object (QC): 6 Does the Pt use WC or Scooter?: No Wheel 50 feet with 2 turns (QC: 6 Type: Manual Wheel 150 feet: 6 Type: Manual PT Plan Problem List Problem List: Activity Tolerance, Functional Strength, Safety, Balance, Gait, Transfer, Bed Mobility Treatment/Plan Treatment Plan: Continue Plan of Care Treatment Plan: Bed Mobility, Education, Functional Activity Karen, Functional Strength, Group Therapy, Gait, Safety, Therapeutic Exercise, Transfers Treatment Duration: May 07, 2023 Frequency: At least 5 of 7 days/Wk (IRF) Estimated Hrs Per Day: 1.5 hours per day Patient and/or Family Agrees t: Yes Safety Risks/Education Patient Education: Gait Training, Transfer Techniques, W/C Management, Safety Issues Teaching Recipient: Patient Teaching Methods: Demonstration, Discussion Response to Teaching: Verbalize Understanding, Return Demonstration, Reinforcement Needed Discharge Recommendations Therapy Discharge Recommendati: Home & Family Equpiment Recommendations-D/C: Quad Cane, Shower Chair, Manual Wheelchair Discharge Status/Home Program Cont per POC Barriers to Progress L sided weakness; unsteadiness; decreased endurance Target Placement Home with spouse Time Time In: 800 Time Out: 915 DATE: Apr 28, 2023 Total Billed Treatment Time: 75 Total Billed Treatment 75 min 1 visit EX x 2 GT x 2 FA x 1 LORENZO ARAUZ PT Apr 28, 2023 13:29
--- NOTE | 2023-04-28 13:57 | Occupational Ther Daily Note ---
OT Current Status-Daily Note Subjective Pt alert, sitting in recliner. Took over care from GRAVEL INSPECTOR. Pt c/o fatigue. Mental Status/Objective Patient Orientation: Person, Place, Time, Situation ADL-Treatment Therapy Code Descriptions/Definitions Functional [place] Measure: 0=Not Assessed/NA 4=Minimal Assistance 1=Total Assistance 5=Supervision or Setup 2=Maximal Assistance 6=Modified [place] 3=Moderate Assistance 7=Complete IndependenceSCALE: Activities may be completed with or without assistive devices. 6-Hrjsaymzrd-ifxhnxd completes the activity by him/herself with no assistance from a helper. 5-Set-up or Clean-up Assistance-helper sets up or cleans up; patient completes activity. [place] assists only prior to or following the activity. 4-Supervision or Touching Assistance-helper provides verbal cues and/or touching/steadying and/or contact guard assistance as patient completes activity. Assistance may be provided throughout the activity or intermittently. 3-Partial/Moderate Assistance-helper does LESS THAN HALF the effort. [place] lifts, holds or supports trunk or limbs, but provides less than half the effort. 2-Substantial/Maximal Assistance-helper does MORE THAN HALF the effort. [place] lifts or holds trunk or limbs and provides more than half the effort. 0-Xyzryvqrq-elybls does ALL the effort. Patient does none of the effort to complete the activity. Or, the assistance of 2 or more helpers is required for the patient to complete the activity. If activity was not attempted, code reason: 7-Patient Refused. 9-Not Applicable-not attempted and the patient did not perform the activity before the current illness, exacerbation or injury. 10-Not Attempted due to Environmental Limitations-(lack of equipment, weather restraints, etc.). 88-Not Attempted due to Medical Conditions or Safety Concerns. Other Treatment Pt working on gravity eliminated shldr abd/add and shldr pro/retraction, 10 reps each. Pt required physical cues to decrease compensatory techniques during L UE AROM. Pt demonstrated AROM fair strength with all L UE movement except wrist/f michele flexion and forearm supination. After session, pt lying in bed with call light/phone in reach. All needs met in room. OT Short Term Goals Short Term Goals Time Frame: May 03, 2023 Eatin Oral hygiene: 6 Toileting hygiene: 3 (Min assist with AE) Shower/bathe self: 3 (Min assist with AE) Upper body dressin (Supervision) Lower body dressin (Supervision with AE as needed.) Putting on/taking off footwear: 4 (with AE) OT [facility] Goals [facility] Goals Time Frame: May 10, 2023 Acute change in mental status: 0 Inattention: 0 Disorganized thinkin Altered level of consciousness: 6 Eating (QC): 6 Oral Hygiene (QC): 6 Toileting Hygiene (QC): 6 Shower/Bathe Self (QC): 6 Upper Body Dressing (QC): 6 Lower Body Dressing (QC): 6 On/Off Footwear (QC): 6 Additional Goals: 1-Demonstrate ADL Tasks, 2-Verbalize Understanding, 3- ImproveStrength/Karen 1=Demonstrate adherence to instructed precautions during ADL tasks. 2=Patient will verbalize/demonstrate understanding of assistive devices/modifications for ADL. 3=Patient will improve strength/tolerance for activity to enable patient to perform ADL's. OT Education/Plan Problem List/Assessment Assessment: Decreased Activ Tolerance, Decreased UE Strength Discharge Recommendations Plan/Recommendations: Continue POC Treatment Plan/Plan of Care Patient would benefit from OT for education, treatment and training to promote independence in ADL's, mobility, safety and/or upper extremity function for ADL's. Plan of Care: ADL Retraining, Functional Mobility, UE Funct Exercise/Act Treatment Duration: May 10, 2023 Frequency: At least 5 of 7 days/Wk (IRF) Estimated Hrs Per Day: 1.5 hours per day Agreement: Yes Rehab Potential: Good Time Start Time: 13:30 Stop Time: 13:50 DATE: Apr 28, 2023 Total Time Billed (hr/min): 20 Billed Treatment Time 1 visit-NM 1 (20 min) MARY CHAVEZ Apr 28, 2023 13:57
--- NOTE | 2023-04-28 14:29 | Speech Therapy Daily Note ---
Speech Daily Progress Note Subjective Date Seen by Provider: Apr 28, 2023 Time Seen by Provider: 13:00 Pt sitting up in wheelchair with present in room. Pt with no new reports. At end of session, pt requests more time with OT to focus on the affected arm. Pt pleasant and cooperative throughout session. Pain Location: No Pain Reported Objective Pt is taught OMEs for lingual and labial ROM and strengthening this date. Pt completes the following: labial protrusion x10 labial retraction x10 cheek puffs x10 lingual sweeps while maintaining labial seal: x10 lingual protrusion x10 lingual retraction x10 lateral lingual movements against resistance x10 Assessment Assessment Current Status: Good Progress Treatment Plan Modify Plan, See Comments Pt to be moved to consult speech services while continuing the exercises provide d. Speech Short Term Goals Short Term Goals Short Term Goals Pt to complete oral motor exercises with 80% accuracy with min verbal cues. Speech Nursing Home Goals Game Engineer Goals Pt to complete oral motor exercises for dysarthria and speech tasks with 80% accuracy min verbal cues. Speech-Plan Patient/Family Goals Patient/Family Goals: Pt's goal is to return home with his following d/c from IRU. Treatment Plan Speech Therapy Treatment Plan: Modify Plan, See Comments Treatment Duration: Apr 26, 2023 Frequency: 1 time per month (Consult services -ADMINISTRATIVE SUPPORT MANAGER will check in with patient daily for any questions or concerns regarding OMES and dysarthria) Estimated Hrs Per Day: Other Rehab Potential: Good Pt/Family Agrees to Plan: Yes Safety Risks/Education Teaching Recipient: Patient, Family Teaching Methods: Handout, Discussion Response to Teaching: Verbalize Understanding Education Topics Provided: Pt and educated on purpose of therapy tasks. Pt provided handout of oral motor exercises taught this date. Pt also provided tongue twisters to practice articulation/enunciation. Pt and informed of plan to change speech to consult. Pt and receptive and verbalized understanding. Time Speech Therapy Time In: 13:00 Speech Therapy Time Out: 13:30 DATE: Apr 28, 2023 Total Billed Time: 30 Billed Treatment Time S/L Shilpa Olsen Speech Therapy Apr 28, 2023 14:28
[2023-04-28] MEDS: ENOXAPARIN 40 MG/0.4 ML (LOVENOX) SYR SC SCH (17:07)
[2023-04-28 19:21] VITALS: BP 184/78
[2023-04-28 20:15] VITALS: BP 155/69
[2023-04-29] MEDS: inSUlin ASPART (NovoLOG) 1 UNIT/0.01 ML (CHARGE PER UNIT) SC SCH ×4 (06:00→21:00)
--- NOTE | 2023-04-29 06:16 | PM&R Progress Note ---
Subjective HPI/CC On Admission Date Seen by Provider: Apr 29, 2023 Time Seen by Provider: 12:00 Subjective/Events-last exam 04/29/2023: Patient doing better Discharge planning Cardiology will be consulted for bradycardia Working left arm and left hand with a lot of therapy 04/28/2023: Patient doing much better Left hand and arm are frustrating him Working hard with therapy No falls No pain Blood sugars improved 04/27/2023: Patient doing a lot better Moving left arm and hand better Walking really well No falls 04/26/2023: Participation is good Recovering nicely Blood sugars reviewed No pain Uses CPAP 04/25/2023: Patient in good spirits today Family friends visiting Reviewed labs Blood sugars better No falls Pain is controlled Added on hemoglobin A1c Review of Systems General: Fatigue, Malaise Objective Exam Vital Signs Vital Signs Date Time Temp Pulse Resp B/P (MAP) Pulse Ox O2 Delivery O2 Flow Rate FiO2 04/29/23 20:10 36.5 61 16 158/71 (100) 96 Room Air 04/27/23 02:43 30.00 Capillary Refill : General Appearance: No Apparent Distress, WD/WN, Chronically ill HEENT: PERRL/EOMI, Normal ENT Inspection, Pharynx Normal Neck: Full Range of Motion, Normal Inspection, Non Tender, Supple, Carotid Bruit Respiratory: Chest Non Tender, Lungs Clear, Normal Breath Sounds, No Accessory Muscle Use, No Respiratory Distress Cardiovascular: Regular Rate, Rhythm, No Edema, No Gallop, No JVD, No Murmur, Normal Peripheral Pulses Gastrointestinal: Normal Bowel Sounds, No Organomegaly, No Pulsatile Mass, Non Tender, Soft Back: Normal Inspection, No CVA Tenderness, No Vertebral Tenderness Extremity: Normal Capillary Refill, Normal Inspection, Normal Range of Motion, Non Tender, No Calf Tenderness, No Pedal Edema Neurologic/Psychiatric: Alert, Oriented x3, Normal Mood/Affect, ticket seller II-XII Norm as Tested, Abnormal Gait, Motor Weakness (Left arm 3/5 left leg 4/5) Skin: Normal Color, Warm/Dry Lymphatic: No Adenopathy Results/Procedures Lab Laboratory Tests 04/29/23 16:52 Patient resulted labs reviewed. FIM Transfers Therapy Code Descriptions/Definitions Functional [place] Measure: 0=Not Assessed/NA 4=Minimal Assistance 1=Total Assistance 5=Supervision or Setup 2=Maximal Assistance 6=Modified [place] 3=Moderate Assistance 7=Complete IndependenceSCALE: Activities may be completed with or without assistive devices. 3-Xheawbaupp-jazdezs completes the activity by him/herself with no assistance from a helper. 5-Set-up or Clean-up Assistance-helper sets up or cleans up; patient completes activity. [place] assists only prior to or following the activity. 4-Supervision or Touching Assistance-helper provides verbal cues and/or touching/steadying and/or contact guard assistance as patient completes activity. Assistance may be provided throughout the activity or intermittently. 3-Partial/Moderate Assistance-helper does LESS THAN HALF the effort. [place] lifts, holds or supports trunk or limbs, but provides less than half the effort. 2-Substantial/Maximal Assistance-helper does MORE THAN HALF the effort. [place] lifts or holds trunk or limbs and provides more than half the effort. 4-Qjtshmkvi-esrkdw does ALL the effort. Patient does none of the effort to c omplete the activity. Or, the assistance of 2 or more helpers is required for the patient to complete the activity. If activity was not attempted, code reason: 7-Patient Refused. 9-Not Applicable-not attempted and the patient did not perform the activity before the current illness, exacerbation or injury. 10-Not Attempted due to Environmental Limitations-(lack of equipment, weather restraints, etc.). 88-Not Attempted due to Medical Conditions or Safety Concerns. Roll Left to Right (QC): 6 Sit to Lying (QC): 4 Sit to Stand (QC): 4 Chair/Bna-hj-Ggapq Xfer(QC): 4 Car Transfer (QC): 4 Gait Training Does the Patient Walk?: Yes Distance: 150ft Walk 10 feet (QC): 4 Walk 50 ft with 2 Turns(QC): 4 Walk 150 ft (QC): 4 Walking 10ft/uneven surface-QC: 4 Gait Persons Needed: 1 Gait Assistive Device: Cane Small Base Quad Wheelchair Training Does the Pt Use a Wheelchair?: Yes Wheel 50 ft with 2 turns (QC): 4 Wheel 150 ft (QC): 4 Type of Wheelchair: Manual Stair Training #of Steps: 12 1 Step (curb) (QC): 4 4 Steps (QC): 4 12 Steps (QC): 4 Balance Picking up an Object (QC): 4 ADL-Treatment Eating (QC): 5 Oral Hygiene (QC): 5 Shower/Bathe Self (QC): 5 Upper Body Dressing (QC): 4 Lower Body Dressing (QC): 4 On/Off Footwear (QC): 3 Toileting Hygiene (QC): 4 Toilet Transfer (QC): 4 Assessment/Plan Assessment and Plan Assess & Plan/Chief Complaint Assessment: 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
[2023-04-29] MEDS: inSUlin NPH/REG (NovoLIN 70/30) CHARGE PER UNIT SQ SCH (07:34)
[2023-04-29] MEDS: GLIMEPIRIDE 2 MG (AMARYL) TAB PO SCH (07:34)
[2023-04-29] MEDS: metFORMIN 500 MG (GLUCOPHAGE) TAB PO SCH ×2 (07:34→17:10)
[2023-04-29 08:00] VITALS: BP 167/80
[2023-04-29] MEDS ORDERED: amLODIPine 5 MG (NORVASC) TAB PO SCH (09:00)
[2023-04-29] MEDS: CLOPIDOGREL 75 MG (PLAVIX) TABLET PO SCH (09:07)
[2023-04-29] MEDS: ASPIRIN E.C. 81 MG (ECOTRIN) TAB PO SCH (09:08)
[2023-04-29] MEDS: EMPAGLIFLOZIN 10 MG TABLET (JARDIANCE) PO SCH (09:08)
[2023-04-29] MEDS: DOCUSATE SODIUM 100 MG (COLACE) CAP PO SCH ×2 (09:09→21:00)
[2023-04-29] MEDS: SENNA W/DOCUSATE (SENOKOT S) TABLET PO SCH ×2 (09:16→21:00)
[2023-04-29] MEDS: polyethylene glycoL POWDER 17 GM (MIRALAX) PACK PO SCH ×2 (09:16→21:00)
--- NOTE | 2023-04-29 11:15 | Physical Therapy Daily Note ---
PT Daily Note-Current Subjective Pt reports he is doing well today and is agreeable to PT. Denies pain Pain Numeric Pain Scale: 0-No Pain Location: No Pain Reported Section J - Health Conditions 1. Rarely or not at all 2. Occasionally 3. Frequently 4. Almost constantly 8. Unable to answer Pain Effect on Sleep: 1 Pain Interference with Therapy: 1 Pain Interference w/Day-to-Day: 1 Transfers SCALE: Activities may be completed with or without assistive devices. 5-Vomyedcuvu-frzcgju completes the activity by him/herself with no assistance from a helper. 5-Set-up or Clean-up Assistance-helper sets up or cleans up; patient completes activity. [place] assists only prior to or following the activity. 4-Supervision or Touching Assistance-helper provides verbal cues and/or touching/steadying and/or contact guard assistance as patient completes activity. Assistance may be provided throughout the activity or intermittently. 3-Partial/Moderate Assistance-helper does LESS THAN HALF the effort. [place] lifts, holds or supports trunk or limbs, but provides less than half the effort. 2-Substantial/Maximal Assistance-helper does MORE THAN HALF the effort. [place] lifts or holds trunk or limbs and provides more than half the effort. 4-Hhlksidse-aaspse does ALL the effort. Patient does none of the effort to complete the activity. Or, the assistance of 2 or more helpers is required for the patient to complete the activity. If activity was not attempted, code reason: 7-Patient Refused. 9-Not Applicable-not attempted and the patient did not perform the activity before the current illness, exacerbation or injury. 10-Not Attempted due to Environmental Limitations-(lack of equipment, weather restraints, etc.). 88-Not Attempted due to Medical Conditions or Safety Concerns. Sit to Stand (QC): 4 Chair/Uce-no-Sxvgo Xfer(QC): 4 Weight Bearing Full Weight Bearing Full Weight Bearing Gait Training Does the Patient Walk?: Yes Walk 10 feet (QC): 4 Walk 50 ft with 2 Turns(QC): 4 Walk 150 ft (QC): 4 Gait Persons Needed: 1 Gait Assistive Device: Cane Small Base Quad Wheelchair Training Does the Pt Use a Wheelchair?: Yes Wheel 50 ft with 2 turns (QC): 4 Wheel 150 ft (QC): 4 Type of Wheelchair: Manual Stair Training Stair Training: Handrails/: 1 handrail 1 Step (curb) (QC): 4 4 Steps (QC): 4 12 Steps (QC): 4 Treatments Pt completed functional transfers with SBA and Min v/c for safety. Pt ambulated 150ft and 195ft with the QC and CGA (w/c follow). Pt completed seated B LE Ther Ex x 20 reps each with the red Tband. Pt negotiated 12 steps with 1 HR and CGA. Pt completed standing Ther Ex x 10 reps each in the // bars, while standing on the airex pad (R UE support and CGA; pt required several rest breaks with standing Ther Ex). Pt completed sit to stand x 10 reps. Pt completed w/c mobility x 300ft with SBA (forwards/backwards). Pt left in w/c in his room after treatment, with call light in reach and all needs met. present. Assessment Current Status: Good Progress Pt tolerated PT well with good effort PT Short Term Goals Short Term Goals Time Frame: Apr 30, 2023 Roll Left & Right: 6 Sit to lyin Lying to sitting on side of be: 6 Sit to stand: 6 Chair/eel-mp-zdibw transfer: 6 Toilet transfer: 6 Car transfer: 5 Walk 10 feet: 6 Walk 50 feet with two turns: 6 Walk 150 feet: 4 Walking 10ft on uneven surface: 4 1 step (curb): 4 4 steps: 4 12 steps: 4 PT Detention Goals Detention Goals PT Hydrochloric Acid Operator Goals Time Frame: May 07, 2023 Roll Left & Right (QC): 6 Sit to Lying (QC): 6 Lying-Sitting on Side/Bed(QC): 6 Sit to Stand (QC): 6 Chair/Wdi-uw-Oivrs Xfer(QC): 6 Toilet Transfer (QC): 6 Car Transfer (QC): 6 Does the Patient Walk: Yes Walk 10 feet (QC): 6 Walk 50ft with 2 Turns (QC): 6 Walk 150 ft (QC): 6 Walking 10ft on Uneven Surface: 6 1 Step (curb) (QC): 6 4 Steps (QC): 6 12 Steps (QC): 6 Picking up an Object (QC): 6 Does the Pt use WC or Scooter?: No Wheel 50 feet with 2 turns (QC: 6 Type: Manual Wheel 150 feet: 6 Type: Manual PT Plan Problem List Problem List: Activity Tolerance, Functional Strength, Safety, Balance, Gait, Transfer, Bed Mobility Treatment/Plan Treatment Plan: Continue Plan of Care Treatment Plan: Bed Mobility, Education, Functional Activity Karen, Functional Strength, Group Therapy, Gait, Safety, Therapeutic Exercise, Transfers Treatment Duration: May 07, 2023 Frequency: At least 5 of 7 days/Wk (IRF) Estimated Hrs Per Day: 1.5 hours per day Patient and/or Family Agrees t: Yes Safety Risks/Education Patient Education: Gait Training, Transfer Techniques, Steps, W/C Management, Safety Issues Teaching Recipient: Patient, Family Teaching Methods: Demonstration, Discussion Response to Teaching: Verbalize Understanding, Return Demonstration, Reinforcement Needed Discharge Recommendations Therapy Discharge Recommendati: Home & Family Equpiment Recommendations-D/C: Quad Cane, Shower Chair, Manual Wheelchair Discharge Status/Home Program Cont per POC Barriers to Progress L sided weakness Target Placement Home with spouse Time Time In: 800 Time Out: 900 DATE: Apr 29, 2023 Total Billed Treatment Time: 60 Total Billed Treatment 60 min 1 visit GT X 1 FA x 1 EX x 2 LORENZO ARAUZ PT Apr 29, 2023 11:14
[2023-04-29] MEDS ORDERED: PRAV10TA PO (12:35)
[2023-04-29] MEDS ORDERED: AMLO-251 PO (12:35)
[2023-04-29] MEDS ORDERED: LOSA100T58 PO (12:35)
[2023-04-29] MEDS ORDERED: METF-397 PO (12:35)
[2023-04-29] MEDS ORDERED: EMPA25TA PO (12:35)
[2023-04-29] MEDS ORDERED: NITR0.4T42 SL (12:35)
[2023-04-29] MEDS ORDERED: CITA20TA9 PO (12:35)
[2023-04-29] MEDS ORDERED: ASPI325T32 PO (12:35)
[2023-04-29] MEDS ORDERED: GLIM4TAB5 PO (12:35)
--- NOTE | 2023-04-29 12:51 | Occupational Ther Daily Note ---
OT Current Status-Daily Note Subjective Pt was found in wheelchair in room, alert and cooperative, and agreed to therapy. Pt reports fatigue. ADL-Treatment Pt ambulated with cane and CGA with therapist to therapy gym. Pt completed neuro re-education, and pt completed wt bearing through effected limb. Pt completed an activity to help keep effected hand using theraputty, with therapist assisting on effected hand. Pt also completed arm bike exercise on 15 lopez for 15 min with effected side wrapped onto handle. Pt did well with that activity and was able to push arm bike with effected side. Pt ambulated from therapy gym to room with cane, CGA. Pt was left in room in wheelchair, present in room, all nee ds met, call light and phone within reach. Therapy Code Descriptions/Definitions Functional [place] Measure: 0=Not Assessed/NA 4=Minimal Assistance 1=Total Assistance 5=Supervision or Setup 2=Maximal Assistance 6=Modified [place] 3=Moderate Assistance 7=Complete IndependenceSCALE: Activities may be completed with or without assistive devices. 4-Mmzwhdngec-nyqjcpc completes the activity by him/herself with no assistance from a helper. 5-Set-up or Clean-up Assistance-helper sets up or cleans up; patient completes activity. [place] assists only prior to or following the activity. 4-Supervision or Touching Assistance-helper provides verbal cues and/or touching/steadying and/or contact guard assistance as patient completes activity. Assistance may be provided throughout the activity or intermittently. 3-Partial/Moderate Assistance-helper does LESS THAN HALF the effort. [place] lifts, holds or supports trunk or limbs, but provides less than half the effort. 2-Substantial/Maximal Assistance-helper does MORE THAN HALF the effort. [place] lifts or holds trunk or limbs and provides more than half the effort. 7-Bziumbgvw-euaqcm does ALL the effort. Patient does none of the effort to complete the activity. Or, the assistance of 2 or more helpers is required for the patient to complete the activity. If activity was not attempted, code reason: 7-Patient Refused. 9-Not Applicable-not attempted and the patient did not perform the activity before the current illness, exacerbation or injury. 10-Not Attempted due to Environmental Limitations-(lack of equipment, weather restraints, etc.). 88-Not Attempted due to Medical Conditions or Safety Concerns. Education OT Patient Education: Correct positioning, Energy conservation, Progress toward Goal/Update tx plan, Purpose of tx/functional activities Teaching Recipient: Patient, Family Teaching Methods: Discussion OT Short Term Goals Short Term Goals Time Frame: May 03, 2023 Eatin Oral hygiene: 6 Toileting hygiene: 3 (Min assist with AE) Shower/bathe self: 3 (Min assist with AE) Upper body dressin (Supervision) Lower body dressin (Supervision with AE as needed.) Putting on/taking off footwear: 4 (with AE) OT Nursing Home Goals Weight Reduction Specialist Goals Time Frame: May 10, 2023 Acute change in mental status: 0 Inattention: 0 Disorganized thinkin Altered level of consciousness: 6 Eating (QC): 6 Oral Hygiene (QC): 6 Toileting Hygiene (QC): 6 Shower/Bathe Self (QC): 6 Upper Body Dressing (QC): 6 Lower Body Dressing (QC): 6 On/Off Footwear (QC): 6 Additional Goals: 1-Demonstrate ADL Tasks, 2-Verbalize Understanding, 3- ImproveStrength/Karen 1=Demonstrate adherence to instructed precautions during ADL tasks. 2=Patient will verbalize/demonstrate understanding of assistive de vices/modifications for ADL. 3=Patient will improve strength/tolerance for activity to enable patient to perform ADL's. OT Education/Plan Problem List/Assessment Assessment: Decreased Activ Tolerance, Decreased Safety Aware, Decreased UE Strength, Impaired I ADL's, Impaired Self-Care Skills, Restricted Funct UE ROM Discharge Recommendations Plan/Recommendations: Continue POC Equpiment Recommendations-D/C: Extended Bath Bench, Rails on Tub/Shower Treatment Plan/Plan of Care Patient would benefit from OT for education, treatment and training to promote independence in ADL's, mobility, safety and/or upper extremity function for ADL's. Plan of Care: ADL Retraining, Functional Mobility, UE Funct Exercise/Act Treatment Duration: May 10, 2023 Frequency: At least 5 of 7 days/Wk (IRF) Estimated Hrs Per Day: 1.5 hours per day Agreement: Yes Rehab Potential: Good Time Start Time: 10:30 Stop Time: 11:30 DATE: Apr 29, 2023 Total Time Billed (hr/min): 60 Billed Treatment Time 1 visit Ex 2(30) NM 2(30) Juliane Saab COTA Apr 29, 2023 12:51
[2023-04-29] MEDS: LOSARTAN 100 MG (COZAAR) TABLET PO SCH (12:56)
--- NOTE | 2023-04-29 15:19 | Therapy Group Daily Note ---
Therapy Daily Group Note Patient Education Topic Exercises Exercises LE Seated Exercise, Sit to/from Stand, UE Exercise Session Ratio (pt:therapist): 3:1 Goal of Session: Memory Strategies, UE/LE Strengthing, Safety with Transfers Goal Met for this Session: Yes Pt Benefit of Group: Contributions to Others, Increased Functional Strength, Improved Cognition, Recognition of Peers, Socialization Other/Notes Pt was propelled to therapy gym for OT group. Group consisted of trivia, socialization, B UE/LE seated exercises and educational topic on HEP exercises. Pt introduced self appropriately and actively listened to peers. Pt was able to verbalize understanding of educational topic by answering trivia questions on topic. Pt able to complete B UE/LE exercises. pt met 3/4 trivia questions. After session, pt sitting in wheelchair with call light/phone in reach. All needs met in room. Start Time: 13:00 Stop Time: 14:00 Total Billed Treatment Time: 60 Total Billed Treatment 1 GRP Juliane Saab COTA Apr 29, 2023 15:18
--- NOTE | 2023-04-29 16:32 | Consultation-Cardiology ---
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 The patient has subsequently been admitted to rehabilitation. His pulse was noted to be slow which led to an EKG being done. EKG shows sinus rhythm with bigeminal PVCs and 1 couplet. The patient denies chest pain or shortness of breath. He does have a history of coronary artery disease with coronary artery bypass grafting. He also has a history of dyslipidemia, hypertension, carotid stenosis, chronic renal insufficiency and obstructive sleep apnea. Review of Systems-Cardiology All Other Systems Reviewed Negative Unless Noted: Yes KZC-Arrvlw-Mcuzcw Hx Patient Social History Marrital Status: Employed/Student: retired Smoking Status: Never a Smoker Alcohol Use?: No Pt feels they are or have been: No Past Medical History PMH As described under Assessment. Allergies and Home Medications Allergies Coded Allergies: tetracycline (Verified Allergy, Mild, Rash, 04/24/23) Patient Home Medication List Home Medication List Reviewed: Yes Amlodipine Besylate (Amlodipine Besylate) 10 Mg Tablet, 10 MG PO DAILY, (Reported) Entered as Reported by: ANA GIANG on 04/29/23 1235 Last Action: Reviewed Aspirin (Aspirin EC) 325 Mg Tablet.dr, 325 MG PO DAILY, (Reported) Entered as Reported by: ANA GIANG on 04/29/23 123 Last Action: Reviewed Citalopram Hydrobromide (Citalopram HBr) 20 Mg Tablet, 10 MG PO DAILY, (Reported) Entered as Reported by: ANA GIANG on 04/29/23 123 Last Action: Reviewed Empagliflozin (Jardiance) 25 Mg Tablet, 25 MG PO DAILY, (Reported) Entered as Reported by: ANA GIANG on 04/29/23 1235 Last Action: Reviewed Glimepiride (Glimepiride) 4 Mg Tablet, 4 MG PO DAILY, (Reported) Entered as Reported by: ANA GIANG on 04/29/231234 Last Action: Reviewed Losartan Potassium (Losartan Potassium) 100 Mg Tablet, 100 MG PO DAILY, ( Reported) Entered as Reported by: ANA GIANG on 04/29/231234 Last Action: Reviewed Metformin HCl (Metformin HCl) 500 Mg Tablet, 1,000 MG PO BID, (Reported) Entered as Reported by: ANA GIANG on 04/29/231234 Last Action: Reviewed Nitroglycerin (Nitroglycerin) 0.4 Mg Tab.subl, 0.4 MG SL UD PRN for CHEST PAIN (ANGINA), (Reported) Entered as Reported by: ANA GIANG on 04/29/231234 Last Action: Reviewed Pravastatin Sodium (Pravastatin Sodium) 10 Mg Tablet, 10 MG PO DAILY, (Reported) Entered as Reported by: ANA GIANG on 04/29/231234 Last Action: Reviewed Exam Vital Signs Vital Signs Date Time Temp Pulse Resp B/P (MAP) Pulse Ox O2 Delivery O2 Flow Rate FiO2 04/29/23 09:45 Room Air 04/29/23 08:00 36.0 52 16 167/80 (109) 98 04/27/23 02:43 30.00 Physical Exam The patient is comfortable. Awake and alert and answering questions appropriately S1 and S2 are irregular with frequent premature beats. No murmur Chest clear to auscultation No lower extremity edema Left hemiparesis Labs Laboratory Tests Test 04/28/23 20:24 04/29/23 06:21 04/29/23 11:00 04/29/23 16:03 Range/Units Glucometer 179 H 163 H 167 H 189 H 70-110 MG/DL EKGs have reviewed. As described above. Delayed progression of R waves in precordial leads ECG Impression ECG Initial ECG Impression Date: Apr 29, 2023 A/P-Cardiology Assessment/Admission Diagnosis #1. Ischemic CVA. Left hemiparesis. The patient is currently on a statin, aspirin and clopidogrel. Undergoing rehab #2. Abnormal EKG with delayed progression of R waves in precordial leads, monomorphic PVCs in bigeminal pattern and 1 couplet. Slow pulse rate is due to frequent PVCs, especially in bigeminal pattern. Start metoprolol 25 mg p.o. twice a day. The patient is also on losartan and amlodipine. He is in a time. With permissive hypertension is intended. Hence I will be discontinuing amlodipine to maintain his blood pressure #3. History of hypertension/dyslipidemia #4. History of coronary artery disease. Post coronary artery bypass grafting. Patient states that he had a transthoracic echo less than 1 week ago. We will t ry and obtain reports of the same. Otherwise a transthoracic echo will be checked this admission #5. Obstructive sleep apnea/renal insufficiency/diabetes. As per primary service REZA THURMAN MD Apr 29, 2023 16:32
[2023-04-29] MEDS: ENOXAPARIN 40 MG/0.4 ML (LOVENOX) SYR SC SCH (17:10)
[2023-04-29 17:17] LABS: POTASSIUM 4.2 MMOL/L (3.6-5.0)
[2023-04-29 17:18] LABS: CALCIUM 9.4 MG/DL (8.5-10.1)
[2023-04-29 17:23] LABS: CREATININE SERUM 1.49 MG/DL (0.60-1.30)
[2023-04-29 17:25] LABS: MAGNESIUM 2.2 MG/DL (1.6-2.4)
[2023-04-29 20:10] VITALS: BP 158/71
[2023-04-29] MEDS: meTOprolol TARTRATE 25 MG (LOPRESSOR) TABLET PO SCH (21:04)
[2023-04-30] MEDS: inSUlin ASPART (NovoLOG) 1 UNIT/0.01 ML (CHARGE PER UNIT) SC SCH ×4 (06:35→21:05)
[2023-04-30] MEDS: metFORMIN 500 MG (GLUCOPHAGE) TAB PO SCH ×2 (06:49→17:09)
[2023-04-30] MEDS: GLIMEPIRIDE 2 MG (AMARYL) TAB PO SCH (06:49)
[2023-04-30] MEDS: meTOprolol TARTRATE 25 MG (LOPRESSOR) TABLET PO SCH (07:59)
[2023-04-30] MEDS: ASPIRIN E.C. 81 MG (ECOTRIN) TAB PO SCH (07:59)
[2023-04-30] MEDS: LOSARTAN 100 MG (COZAAR) TABLET PO SCH (08:00)
[2023-04-30] MEDS: EMPAGLIFLOZIN 10 MG TABLET (JARDIANCE) PO SCH (08:00)
[2023-04-30] MEDS: CLOPIDOGREL 75 MG (PLAVIX) TABLET PO SCH (08:00)
[2023-04-30] MEDS: polyethylene glycoL POWDER 17 GM (MIRALAX) PACK PO SCH ×2 (08:01→21:05)
[2023-04-30] MEDS: SENNA W/DOCUSATE (SENOKOT S) TABLET PO SCH ×2 (08:01→21:05)
[2023-04-30] MEDS: DOCUSATE SODIUM 100 MG (COLACE) CAP PO SCH ×2 (08:01→21:05)
[2023-04-30 08:38] VITALS: BP 149/68
--- NOTE | 2023-04-30 10:51 | PM&R Progress Note ---
Subjective HPI/CC On Admission Date Seen by Provider: Apr 30, 2023 Time Seen by Provider: 12:30 Subjective/Events-last exam 04/30/2023: Patient doing really well Working on therapy for left arm Discharge plan for Wednesday04/29/2023: Patient doing better Discharge planning Cardiology will be consulted for bradycardia Working left arm and left hand with a lot of therapy 04/28/2023: Patient doing much better Left hand and arm are frustrating him Working hard with therapy No falls No pain Blood sugars improved 04/27/2023: Patient doing a lot better Moving left arm and hand better Walking really well No falls 04/26/2023: Participation is good Recovering nicely Blood sugars reviewed No pain Uses CPAP 04/25/2023: Patient in good spirits today Family friends visiting Reviewed labs Blood sugars better No falls Pain is controlled Added on hemoglobin A1c Review of Systems General: Fatigue, Malaise Objective Exam Vital Signs Vital Signs Date Time Temp Pulse Resp B/P (MAP) Pulse Ox O2 Delivery O2 Flow Rate FiO2 04/30/23 20:17 36.3 76 16 171/74 (106) 95 Room Air 04/29/23 23:23 30.00 Capillary Refill : General Appearance: No Apparent Distress, WD/WN, Chronically ill HEENT: PERRL/EOMI, Normal ENT Inspection, Pharynx Normal Neck: Full Range of Motion, Normal Inspection, Non Tender, Supple, Carotid Bruit Respiratory: Chest Non Tender, Lungs Clear, Normal Breath Sounds, No Accessory Muscle Use, No Respiratory Distress Cardiovascular: Regular Rate, Rhythm, No Edema, No Gallop, No JVD, No Murmur, Normal Peripheral Pulses Gastrointestinal: Normal Bowel Sounds, No Organomegaly, No Pulsatile Mass, Non Tender, Soft Back: Normal Inspection, No CVA Tenderness, No Vertebral Tenderness Extremity: Normal Capillary Refill, Normal Inspection, Normal Range of Motion, Non Tender, No Calf Tenderness, No Pedal Edema Neurologic/Psychiatric: Alert, Oriented x3, Normal Mood/Affect, cobol application developer II-XII Norm as Tested, Abnormal Gait, Motor Weakness (Left arm 3/5 left leg 4/5) Skin: Normal Color, Warm/Dry Lymphatic: No Adenopathy Results/Procedures Lab Patient resulted labs reviewed. FIM Transfers Therapy Code Descriptions/Definitions Functional [place] Measure: 0=Not Assessed/NA 4=Minimal Assistance 1=Total Assistance 5=Supervision or Setup 2=Maximal Assistance 6=Modified [place] 3=Moderate Assistance 7=Complete IndependenceSCALE: Activities may be completed with or without assistive devices. 4-Lyedbsubfe-pzbgdvn completes the activity by him/herself with no assistance from a helper. 5-Set-up or Clean-up Assistance-helper sets up or cleans up; patient completes activity. [place] assists only prior to or following the activity. 4-Supervision or Touching Assistance-helper provides verbal cues and/or touching/steadying and/or contact guard assistance as patient completes activity. Assistance may be provided throughout the activity or intermittently. 3-Partial/Moderate Assistance-helper does LESS THAN HALF the effort. [place] lifts, holds or supports trunk or limbs, but provides less than half the effort. 2-Substantial/Maximal Assistance-helper does MORE THAN HALF the effort. [place] lifts or holds trunk or limbs and provides more than half the effort. 3-Izepurxwm-oxhwbb does ALL the effort. Patient does none of the effort to complete the activity. Or, the assistance of 2 or more helpers is required for the patient to complete the activity. If activity was not attempted, code reason: 7-Patient Refused. 9-Not Applicable-not attempted and the patient did not perform the activity before the current illness, exacerbation or injury. 10-Not Attempted due to Environmental Limitations-(lack of equipment, weather restraints, etc.). 88-Not Attempted due to Medical Conditions or Safety Concerns. Roll Left to Right (QC): 6 Sit to Lying (QC): 4 Sit to Stand (QC): 4 Chair/Urb-fb-Sdsqt Xfer(QC): 4 Car Transfer (QC): 4 Gait Training Does the Patient Walk?: Yes Walk 10 feet (QC): 4 Walk 50 ft with 2 Turns(QC): 4 Walk 150 ft (QC): 4 Walking 10ft/uneven surface-QC: 4 Gait Persons Needed: 1 Gait Assistive Device: Cane Small Base Quad Wheelchair Training Does the Pt Use a Wheelchair?: Yes Wheel 50 ft with 2 turns (QC): 4 Wheel 150 ft (QC): 4 Type of Wheelchair: Manual Stair Training Stair Training: Handrails/: 1 handrail #of Steps: 12 1 Step (curb) (QC): 4 4 Steps (QC): 4 12 Steps (QC): 4 Balance Picking up an Object (QC): 4 ADL-Treatment Eating (QC): 5 Oral Hygiene (QC): 5 Shower/Bathe Self (QC): 5 Upper Body Dressing (QC): 4 Lower Body Dressing (QC): 4 On/Off Footwear (QC): 3 Toileting Hygiene (QC): 4 Toilet Transfer (QC): 4 Assessment/Plan Assessment and Plan Assess & Plan/Chief Complaint Assessment: CVA with left-sided weakness with infarct confirmed on MRI placed on Plavix and aspirin and statin Diabetes insulin-dependent xrq-eg-eudzfml Hypertension Hyperlipidemia CAD previous bypass Carotid stenosis with stable carotid ultrasound performed on 04/21/[address] 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
--- NOTE | 2023-04-30 11:15 | Physical Therapy Daily Note ---
PT Daily Note-Current Subjective Pt found lying in bed /c RN present upon entry. Agreed to PT. No reports of pain or discomfort throughout visit. States that he feels a little fatigued today. Pain Section J - Health Conditions 1. Rarely or not at all 2. Occasionally 3. Frequently 4. Almost constantly 8. Unable to answer Pain Effect on Sleep: 1 Pain Interference with Therapy: 1 Pain Interference w/Day-to-Day: 1 Mental Status Patient Orientation: Person, Place Transfers SCALE: Activities may be completed with or without assistive devices. 1-Ebqifkfbnl-oirxvvi completes the activity by him/herself with no assistance from a helper. 5-Set-up or Clean-up Assistance-helper sets up or cleans up; patient completes activity. [place] assists only prior to or following the activity. 4-Supervision or Touching Assistance-helper provides verbal cues and/or touching/steadying and/or contact guard assistance as patient completes activity. Assistance may be provided throughout the activity or intermittently. 3-Partial/Moderate Assistance-helper does LESS THAN HALF the effort. [place] lifts, holds or supports trunk or limbs, but provides less than half the effort. 2-Substantial/Maximal Assistance-helper does MORE THAN HALF the effort. [place] lifts or holds trunk or limbs and provides more than half the effort. 2-Dtcfuqhuf-pzhnpf does ALL the effort. Patient does none of the effort to complete the activity. Or, the assistance of 2 or more helpers is required for the patient to complete the activity. If activity was not attempted, code reason: 7-Patient Refused. 9-Not Applicable-not attempted and the patient did not perform the activity before the current illness, exacerbation or injury. 10-Not Attempted due to Environmental Limitations-(lack of equipment, weather restraints, etc.). 88-Not Attempted due to Medical Conditions or Safety Concerns. Roll Left & Right (QC): 6 Sit to Lying (QC): 6 Lying to Sitting/Side of Bed(Q: 6 Sit to Stand (QC): 4 Chair/Ioq-on-Wlxqq Xfer(QC): 4 Toilet Transfer (QC): 4 Car Transfer (QC): 4 Pt independent /c all bed mobility /c no assistive device use. CGA /c all other completed transfers for safety due to strength and balance deficits. No verbal cues required to complete. Sit to stand transfer completed 10x. Weight Bearing Full Weight Bearing Full Weight Bearing Gait Training Does the Patient Walk?: Yes Distance: 200, 100 Walk 10 feet (QC): 4 Walk 50 ft with 2 Turns(QC): 4 Walk 150 ft (QC): 4 Walking 10ft/uneven surface-QC: 4 Gait Persons Needed: 1 Gait Assistive Device: Cane Small Base Quad Pt ambulates /c use of small base quad cane up to 200 feet before requiring a seated rest break. Occasionally displays toe drag on L side but is able to regain balance without steadying assistance from helper. Increased fatigue displayed upon completion. Stair Training Stair Training: Handrails/: 2 handrails #of Steps: 15 1 Step (curb) (QC): 4 4 Steps (QC): 4 12 Steps (QC): 4 Stairs: Pattern: Step to Pt completes 15 steps /c use of 2 handrails and a step to pattern. CGA required for safety due to strength and balance deficits. No loss of balance displayed. Uses proper step pattern /c no verbal cues required. Balance Picking up an Object (QC): 4 Exercises NuStep Minutes: 15 NuStep Workload: 2 Treatments Standing Therapeutic Exercises (B): Hip 3-ways x 15 Hamstring curls x 15 Heel/toe raises x 15 Marching x 15 Retro ambulation x 3 trips at // Side stepping x 3 trips at // Heel over toe ambulation x 3 trips at // Seated Therapeutic Exercises (B): Hamstring curls /c RTB x 15 Hip abd /c RTB x 15 Marching /c RTB x 15 Hip add /c ball x 15 Assessment Current Status: Good Progress Pt displays good muscle strength and endurance /c therapeutic exercises and gait training. Occasionally has difficulty /c LLE coordination during ambulation and displays L toe drag but is able to self-correct without losing balance. Pt able to ambulate up to 200 feet /c use of a small base quad cane before requiring a seated rest break. Pt required occasional short seated rest breaks /c therapeutic exercises. Continue to progress pt as tolerated per POC to address strength, endurance, and functional ability deficits. PT Short Term Goals Short Term Goals Time Frame: Apr 30, 2023 Roll Left & Right: 6 Sit to lyin Lying to sitting on side of be: 6 Sit to stand: 6 Chair/fwz-tt-attmp transfer: 6 Toilet transfer: 6 Car transfer: 5 Walk 10 feet: 6 Walk 50 feet with two turns: 6 Walk 150 feet: 4 Walking 10ft on uneven surface: 4 1 step (curb): 4 4 steps: 4 12 steps: 4 PT [facility] Goals [facility] Goals PT Graphic Art Technician Goals Time Frame: May 07, 2023 Roll Left & Right (QC): 6 Sit to Lying (QC): 6 Lying-Sitting on Side/Bed(QC): 6 Sit to Stand (QC): 6 Chair/Xfr-gs-Ouwgg Xfer(QC): 6 Toilet Transfer (QC): 6 Car Transfer (QC): 6 Does the Patient Walk: Yes Walk 10 feet (QC): 6 Walk 50ft with 2 Turns (QC): 6 Walk 150 ft (QC): 6 Walking 10ft on Uneven Surface: 6 1 Step (curb) (QC): 6 4 Steps (QC): 6 12 Steps (QC): 6 Picking up an Object (QC): 6 Does the Pt use WC or Scooter?: No Wheel 50 feet with 2 turns (QC: 6 Type: Manual Wheel 150 feet: 6 Type: Manual PT Plan Treatment/Plan Treatment Plan: Continue Plan of Care Treatment Plan: Bed Mobility, Education, Functional Activity Karen, Functional Strength, Group Therapy, Gait, Safety, Therapeutic Exercise, Transfers Treatment Duration: May 07, 2023 Frequency: At least 5 of 7 days/Wk (IRF) Estimated Hrs Per Day: 1.5 hours per day Patient and/or Family Agrees t: Yes Time Time In: 914 Time Out: 1045 DATE: Apr 30, 2023 Total Billed Treatment Time: 90 Total Billed Treatment 1 visit GT x 2 FA x 2 EX x 2 MIGUEL ANGEL COOK SKIN LIFTER BACON Apr 30, 2023 11:15
--- NOTE | 2023-04-30 11:47 | Occupational Ther Daily Note ---
OT Current Status-Daily Note Subjective Pt was in wheelchair in room upon arrival. Agreed to therapy, alert and cooperative. ADL-Treatment pt completed shower with set up assist. Pt completes upper and lower body dressing with mod assist. Pt is set up for eating. Pt completed toilet hygiene and toilet transfer independently. Pt was reminded of the AE that was available to use, pt refused and got agitated using AE. Family was shown AE and how to use for home use if they chose to. Pt propelled self in wheelchair using R UE, and B LE to therapy gym. Pt completed arm bike for 15 mins at 15 lopez, therapist wrapped hand on handle to keep effect hand in place. Pt then participated in neuro-muscular re-education focusing on wt bearing through effected limb, 3 sets of 30 second intervals. Pt propelled self back to room from therapy gym again using R UE. Therapy Code Descriptions/Definitions Functional [place] Measure: 0=Not Assessed/NA 4=Minimal Assistance 1=Total Assistance 5=Supervision or Setup 2=Maximal Assistance 6=Modified [place] 3=Moderate Assistance 7=Complete IndependenceSCALE: Activities may be completed with or without assistive devices. 8-Zvvywhwfuo-bvspknd completes the activity by him/herself with no assistance from a helper. 5-Set-up or Clean-up Assistance-helper sets up or cleans up; patient completes activity. [place] assists only prior to or following the activity. 4-Supervision or Touching Assistance-helper provides verbal cues and/or touching/steadying and/or contact guard assistance as patient completes activity. Assistance may be provided throughout the activity or intermittently. 3-Partial/Moderate Assistance-helper does LESS THAN HALF the effort. [place] lifts, holds or supports trunk or limbs, but provides less than half the effort. 2-Substantial/Maximal Assistance-helper does MORE THAN HALF the effort. [place] lifts or holds trunk or limbs and provides more than half the effort. 4-Nfnhxkfwb-oyrgsh does ALL the effort. Patient does none of the effort to complete the activity. Or, the assistance of 2 or more helpers is required for the patient to complete the activity. If activity was not attempted, code reason: 7-Patient Refused. 9-Not Applicable-not attempted and the patient did not perform the activity before the current illness, exacerbation or injury. 10-Not Attempted due to Environmental Limitations-(lack of equipment, weather restraints, etc.). 88-Not Attempted due to Medical Conditions or Safety Concerns. Eating (QC): 6 Oral Hygiene (QC): 5 Shower/Bathe Self (QC): 5 Upper Body Dressing (QC): 3 Lower Body Dressing (QC): 3 (mod) On/Off Footwear: 3 Toileting Hygiene (QC): 6 Toilet Transfer (QC): 6 Education OT Patient Education: Correct positioning, Energy conservation, Instructions to caregiver, Modified ADL techniques, Progress toward Goal/Update tx plan, Purpose of tx/functional activities, Use of adapted equipment Teaching Recipient: Patient, Family Teaching Methods: Demonstration, Discussion Response to Teaching: Verbalize Understanding BIMS CAM BIMS Expression of Ideas and Wants: Without Difficulty Understanding Verbal Content: Understands Brief Interview/Mental Status: Yes IRF OG BIMS: IRF OG BIMS Response (Comments) Value Repitition of Three Words Three 3 Recalls Socks Yes, No Cue Required 2 Recalls Blue Yes, No Cue Required 2 Recalls Bed Yes, No Cue Required 2 Year Missed by 1 Year 2 Month Accurate Within 5 Days 2 Day Correct 1 Total 14 Patient Normally Able to Recal: Current Session, Location of own room, Staff Names and faces, That he/she in a [facility] Should Staff Asses. Mental St.: No Memory/Recall Ability: Current Season, Location of Own Room, Staff Names and Faces, That He/She in Hospit[facility] Mental Status Change/Baseline: 0 Inattention: 0 Disorganized thinkin Altered level of consciousness: 0 OT Short Term Goals Short Term Goals Time Frame: May 03, 2023 Eatin Oral hygiene: 6 Toileting hygiene: 3 (Min assist with AE) Shower/bathe self: 3 (Min assist with AE) Upper body dressin (Supervision) Lower body dressin (Supervision with AE as needed.) Putting on/taking off footwear: 4 (with AE) OT Software Development Manager Goals Software Development Manager Goals Time Frame: May 10, 2023 Acute change in mental status: 0 Inattention: 0 Disorganized thinkin Altered level of consciousness: 6 Eating (QC): 6 (met) Oral Hygiene (QC): 6 (not met) Toileting Hygiene (QC): 6 (met) Shower/Bathe Self (QC): 6 (not met) Upper Body Dressing (QC): 6 (not met) Lower Body Dressing (QC): 6 (not met) On/Off Footwear (QC): 6 (not met) Additional Goals: 1-Demonstrate ADL Tasks, 2-Verbalize Understanding, 3-ImproveStrength/Karen 1=Demonstrate adherence to instructed precautions during ADL tasks. 2=Patient will verbalize/demonstrate understanding of assistive devices/modifications for ADL. 3=Patient will improve strength/tolerance for activity to enable patient to perform ADL's. OT Education/Plan Problem List/Assessment Assessment: Decreased Safety Aware, Decreased UE Strength Discharge Recommendations Plan/Recommendations: Continue POC Equpiment Recommendations-D/C: Extended Bath Bench, Rails on Tub/Shower, Bath Chair, Telecommunication Tower Technician, Sock Aide Treatment Plan/Plan of Care Patient would benefit from OT for education, treatment and training to promote independence in ADL's, mobility, safety and/or upper extremity function for ADL's. Plan of Care: ADL Retraining, Functional Mobility, UE Funct Exercise/Act Treatment Duration: May 10, 2023 Frequency: At least 5 of 7 days/Wk (IRF) Estimated Hrs Per Day: 1.5 hours per day Agreement: Yes Rehab Potential: Good Time Start Time: 11:00 Stop Time: 12:00 DATE: Apr 30, 2023 Total Time Billed (hr/min): 60 Billed Treatment Time 1 visit ADL 2 (30) NM 2 (30) Juliane Saab COTA Apr 30, 2023 11:47
--- NOTE | 2023-04-30 14:04 | Cardiology Progress Note ---
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 The patient has subsequently been admitted to rehabilitation. His pulse was noted to be slow which led to an EKG being done. EKG showed sinus rhythm with bigeminal PVCs and 1 couplet. The patient denies chest pain or shortness of breath. He does have a history of coronary artery disease with coronary artery bypass grafting. He also has a history of dyslipidemia, hypertension, carotid stenosis, chronic renal insufficiency and obstructive sleep apnea. Continues to deny chest pain or shortness of breath. Only complaint is generalized fatigue. Tolerating low-dose metoprolol. Based on my physical examination, PVCs with bigeminal pattern persist (weak alternate pulse on exam) Exam Vital Signs Vital Signs Date Time Temp Pulse Resp B/P (MAP) Pulse Ox O2 Delivery O2 Flow Rate FiO2 04/30/23 09:00 Room Air 04/30/23 08:38 36.1 54 16 149/68 (95) 92 04/29/23 23:23 30.00 Physical Exam S1 and S2 irregularly irregular. Every alternate pulse of flow volume, most likely representing a PVC Chest clear to auscultation Left hemiparesis No lower extremity edema IMAGING Transthoracic echo report from 04/22/2023 from outside hospital reviewed Left ventricle ejection fraction 50 to 55%. No wall motion abnormalities Intracardiac bubble study negative for intracardiac shunting EKG reviewed. As described above. Delayed progression of R waves in precordial leads. PVCs in bigeminal pattern with 1 couplet Labs Laboratory Tests Test 04/29/23 16:03 04/29/23 16:52 04/29/23 21:00 04/30/23 06:19 Range/Units Glucometer 189 H 171 H 135 H 70-110 MG/DL Sodium Level 137 135-145 MMOL/L Potassium Level 4.2 3.6-5.0 MMOL/L Chloride Level 103 98-107 MMOL/L Carbon Dioxide Level 23 21-32 MMOL/L Anion Gap 11 5-14 MMOL/L Blood Urea Nitrogen 23 H 7-18 MG/DL Creatinine 1.49 H 0.60-1.30 MG/DL Estimat Glomerular Filtration Rate 51 BUN/Creatinine Ratio 15 Glucose Level 184 H 70-105 MG/DL Calcium Level 9.4 8.5-10.1 MG/DL Magnesium Level 2.2 1.6-2.4 MG/DL Test 04/30/23 10:48 Range/Units Glucometer 146 H 70-110 MG/DL A/P-Cardiology Admission Diagnosis #1. Ischemic CVA. Left hemiparesis. The patient is currently on a statin, aspirin and clopidogrel. Undergoing rehab #2. Abnormal EKG with delayed progression of R waves in precordial leads, monomorphic PVCs in bigeminal pattern and 1 couplet. Slow pulse rate is due to frequent PVCs, especially in bigeminal pattern. Tolerating metoprolol tartrate 25 mg p.o. twice a day, but with evidence of persistent ventricular bigeminy on exam. Increase metoprolol to tartrate to 50 mg twice a day. Amlodipine was stopped on 04/29/2023 to avoid hypotension. The patient is also on losartan which we will continue for now. Start telemetry monitoring. #3. History of hypertension/dyslipidemia #4. History of coronary artery disease. Post coronary artery bypass grafting. Unremarkable transthoracic echo 04/22/2023 with preserved left ventricular ejection fraction and no evidence of any advanced valvular abnormality #5. Obstructive sleep apnea/renal insufficiency/diabetes. As per primary service REZA THURMAN MD Apr 30, 2023 14:04
[2023-04-30] MEDS: ENOXAPARIN 40 MG/0.4 ML (LOVENOX) SYR SC SCH (17:09)
[2023-04-30] MEDS: meTOprolol TARTRATE 50 MG (LOPRESSOR) TAB PO SCH (17:11)
[2023-04-30 17:14] VITALS: BP 197/80
[2023-04-30 20:17] VITALS: BP 171/74
[2023-04-30] MEDS ORDERED: METO50TA15 PO (21:04)
[2023-04-30] MEDS ORDERED: EMPA25TA PO (21:04)
[2023-04-30] MEDS ORDERED: BLOO-661 (21:04)
[2023-04-30] MEDS ORDERED: ASPI-1238 PO (21:04)
[2023-04-30] MEDS ORDERED: CLOP75TA28 PO (21:04)
[2023-04-30] MEDS ORDERED: LOSA100T58 PO (21:04)
[2023-04-30] MEDS ORDERED: ATOR80TA76 PO (21:04)
[2023-04-30] MEDS ORDERED: INSU100I88 SQ (21:04)
[2023-04-30] MEDS ORDERED: GLMP2T PO (21:04)
[2023-04-30] MEDS ORDERED: CITA20TA9 PO (21:04)
[2023-04-30] MEDS ORDERED: LANC1EAC92 MC (21:04)
[2023-04-30] MEDS ORDERED: BLOO-662 MC (21:04)
--- NOTE | 2023-04-30 21:05 | D/C HH Face to Face Order ---
D/C HH Face to Face Orders Reconcile Patient Problems Problems Reviewed?: Yes Instructions for Patient HH Patient Instructions/FollowUp: pcp 1 week Physician to follow Patient: pcp Discharge Diet for Home: ADA Diet Patient Problems: DM CVA Patient Data-Allergies,Ht & Wt Patient Allergies: Coded Allergies: tetracycline (Verified Allergy, Mild, Rash, 04/24/23) Home Health Need/Face to Face Date of Face to Face: Apr 30, 2023 Clinical Findings: Generalized weakness and fatigue, Instability, Muscle w eakness, Unsteady gait I have seen Pt ward-bj-wklx: Yes Discharged To: Home Diagnosis/Conditions: cva Patient is Homebound due to: Alexandra fall risk due to instabilty, Muscle weakness Homebound Status Due to the above stated illness, injury or surgical procedure (medical condition or diagnosis) and associated clinical findings, the patient is homebound because of his/her inability to leave home except with aid of a supportive device and/or person AND leaving the home requires a considerable and taxing effort or is medically contraindicated. Pt req the following assistanc: Walker Home Health Nursing Orders Home Health Services Order: Nursing Services, [employer] Sales Engineer-Evaluate & Treat, Physical Therapy-Evaluate & Treat Certify Stmt I certify that this patient is under my care and that I, a nurse practitioner or a physician; a health care legal assistant working with me, had a face to face encounter that - meets the physician face to face encounter requirements with this patient as dated. ADRI GOODRICH DO Apr 30, 2023 21:05
[2023-05-01] MEDS: inSUlin ASPART (NovoLOG) 1 UNIT/0.01 ML (CHARGE PER UNIT) SC SCH ×4 (05:39→20:07)
--- NOTE | 2023-05-01 06:53 | PM&R Progress Note ---
Subjective HPI/CC On Admission Date Seen by Provider: May 01, 2023 Time Seen by Provider: 12:30 Subjective/Events-last exam 05/01/2023: Patient doing a lot better at bedside Left arm and hand weakness getting better 04/30/2023: Patient doing really well Working on therapy for left arm Discharge plan for Wednesday04/29/2023: Patient doing better Discharge planning Cardiology will be consulted for bradycardia Working left arm and left hand with a lot of therapy 04/28/2023: Patient doing much better Left hand and arm are frustrating him Working hard with therapy No falls No pain Blood sugars improved 04/27/2023: Patient doing a lot better Moving left arm and hand better Walking really well No falls 04/26/2023: Participation is good Recovering nicely Blood sugars reviewed No pain Uses CPAP 04/25/2023: Patient in good spirits today Family friends visiting Reviewed labs Blood sugars better No falls Pain is controlled Added on hemoglobin A1c Review of Systems General: Fatigue, Malaise Objective Exam Vital Signs Vital Signs Date Time Temp Pulse Resp B/P (MAP) Pulse Ox O2 Delivery O2 Flow Rate FiO2 05/01/23 19:25 61 05/01/23 15:21 90 Room Air 05/01/23 08:00 36.1 16 158/68 (98) 04/30/23 22:02 30.00 Capillary Refill : General Appearance: No Apparent Distress, WD/WN, Chronically ill HEENT: PERRL/EOMI, Normal ENT Inspection, Pharynx Normal Neck: Full Range of Motion, Normal Inspection, Non Tender, Supple, Carotid Bruit Respiratory: Chest Non Tender, Lungs Clear, Normal Breath Sounds, No Accessory Muscle Use, No Respiratory Distress Cardiovascular: Regular Rate, Rhythm, No Edema, No Gallop, No JVD, No Murmur, Normal Peripheral Pulses Gastrointestinal: Normal Bowel Sounds, No Organomegaly, No Pulsatile Mass, Non Tender, Soft Back: Normal Inspection, No CVA Tenderness, No Vertebral Tenderness Extremity: Normal Capillary Refill, Normal Inspection, Normal Range of Motion, Non Tender, No Calf Tenderness, No Pedal Edema Neurologic/Psychiatric: Alert, Oriented x3, Normal Mood/Affect, gardening instructor II-XII Norm as Tested, Abnormal Gait, Motor Weakness (Left arm 3/5 left leg 4/5) Skin: Normal Color, Warm/Dry Lymphatic: No Adenopathy Results/Procedures Lab Patient resulted labs reviewed. FIM Transfers Therapy Code Descriptions/Definitions Functional [place] Measure: 0=Not Assessed/NA 4=Minimal Assistance 1=Total Assistance 5=Supervision or Setup 2=Maximal Assistance 6=Modified [place] 3=Moderate Assistance 7=Complete IndependenceSCALE: Activities may be completed with or without assistive devices. 6-Anujzpkpkc-zonwtga completes the activity by him/herself with no assistance from a helper. 5-Set-up or Clean-up Assistance-helper sets up or cleans up; patient completes activity. [place] assists only prior to or following the activity. 4-Supervision or Touching Assistance-helper provides verbal cues and/or harleen antonia/steadying and/or contact guard assistance as patient completes activity. Assistance may be provided throughout the activity or intermittently. 3-Partial/Moderate Assistance-helper does LESS THAN HALF the effort. [place] lifts, holds or supports trunk or limbs, but provides less than half the effort. 2-Substantial/Maximal Assistance-helper does MORE THAN HALF the effort. [place] lifts or holds trunk or limbs and provides more than half the effort. 3-Mpcswujqb-gexwgy does ALL the effort. Patient does none of the effort to complete the activity. Or, the assistance of 2 or more helpers is required for the patient to complete the activity. If activity was not attempted, code reason: 7-Patient Refused. 9-Not Applicable-not attempted and the patient did not perform the activity before the current illness, exacerbation or injury. 10-Not Attempted due to Environmental Limitations-(lack of equipment, weather restraints, etc.). 88-Not Attempted due to Medical Conditions or Safety Concerns. Roll Left to Right (QC): 6 Sit to Lying (QC): 6 Sit to Stand (QC): 4 Chair/Jfe-vk-Moffh Xfer(QC): 4 Car Transfer (QC): 4 Gait Training Does the Patient Walk?: Yes Distance: 200, 100 Walk 10 feet (QC): 4 Walk 50 ft with 2 Turns(QC): 4 Walk 150 ft (QC): 4 Walking 10ft/uneven surface-QC: 4 Gait Persons Needed: 1 Gait Assistive Device: Cane Small Base Quad Wheelchair Training Does the Pt Use a Wheelchair?: Yes Wheel 50 ft with 2 turns (QC): 4 Wheel 150 ft (QC): 4 Type of Wheelchair: Manual Stair Training Stair Training: Handrails/: 2 handrails #of Steps: 15 1 Step (curb) (QC): 4 4 Steps (QC): 4 12 Steps (QC): 4 Stairs: Pattern: Step to Balance Picking up an Object (QC): 4 ADL-Treatment Eating (QC): 6 Oral Hygiene (QC): 5 Shower/Bathe Self (QC): 5 Upper Body Dressing (QC): 3 Lower Body Dressing (QC): 3 (mod) On/Off Footwear (QC): 3 Toileting Hygiene (QC): 6 Toilet Transfer (QC): 6 Assessment/Plan Assessment and Plan Assess & Plan/Chief Complaint Assessment: CVA with left-sided weakness with infarct confirmed on MRI placed on Plavix and aspirin and statin Diabetes insulin-dependent gws-wm-mgiutmj Hypertension Hyperlipidemia CAD previous bypass Carotid stenosis with stable carotid ultrasound performed on 04/21/[address] 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
[2023-05-01] MEDS: metFORMIN 500 MG (GLUCOPHAGE) TAB PO SCH ×2 (06:59→17:10)
[2023-05-01] MEDS: GLIMEPIRIDE 2 MG (AMARYL) TAB PO SCH (06:59)
[2023-05-01 08:00] VITALS: BP 158/68
[2023-05-01] MEDS: EMPAGLIFLOZIN 10 MG TABLET (JARDIANCE) PO SCH (09:53)
[2023-05-01] MEDS: ASPIRIN E.C. 81 MG (ECOTRIN) TAB PO SCH (09:53)
[2023-05-01] MEDS: CLOPIDOGREL 75 MG (PLAVIX) TABLET PO SCH (09:54)
[2023-05-01] MEDS: SENNA W/DOCUSATE (SENOKOT S) TABLET PO SCH ×2 (09:54→20:07)
[2023-05-01] MEDS: DOCUSATE SODIUM 100 MG (COLACE) CAP PO SCH ×2 (09:54→20:07)
[2023-05-01] MEDS: polyethylene glycoL POWDER 17 GM (MIRALAX) PACK PO SCH ×2 (09:54→20:07)
[2023-05-01] MEDS: LOSARTAN 100 MG (COZAAR) TABLET PO SCH (09:54)
[2023-05-01] MEDS: meTOprolol TARTRATE 50 MG (LOPRESSOR) TAB PO SCH ×2 (09:54→17:09)
--- NOTE | 2023-05-01 17:02 | Progress Note - Cardiology ---
Cardiology SOAP Progress Note Subjective: No cp or palp or syncope No n/v/d L-sided weakness Gen weakness Objective: I&O/Vital Signs 05/01/23 05/01/23 05/01/23 05/01/23 07:00 08:00 09:09 12:54 Temp 36.1 Pulse 69 59 68 Resp 16 B/P (MAP) 158/68 (98) Pulse Ox 91 91 O2 Delivery Room Air Room Air 05/01/23 15:21 Pulse Ox 90 O2 Delivery Room Air 05/01/23 00:00 Intake Total 900 ml Balance 900 ml Constitutional: AAO x 3, well-developed, well-nourished Respiratory: No accessory muscle use; chest expansion is symmetric, chest is bilaterally symmetric, other (fair, bilat air entry, diminished at the bases) Cardiovascular: regular rate-rhythm, extra beats, S1 and S2, systolic murmur (soft DIAMOND at card base) Gastrointestional: No tender; soft; No guarding, No rebound; audible bowel sounds Extremities: swelling (mild, bilat leg edema); No clubbing, No cyanosis Neurologic/Psychiatric: oriented x 3, other (L-sided weakness) Skin: normal color, warm/dry; No cyanosis Results/Procedures: Labs Laboratory Tests 04/30/23 20:27: Glucometer 150H 05/01/23 05:32: Glucometer 136H 05/01/23 11:26: Glucometer 149H 05/01/23 16:04: Glucometer 217H A/P: Assessment: Ischemic CVA. Left hemiparesis. The patient is currently on a statin, aspirin and clopidogrel. Undergoing rehab Frequent PVCs, apparently chronic - metoprolol to tartrate 50 mg twice a day. Amlodipine was stopped on 04/29/2023 to avoid hypotension. The patient is also on losartan which we will continue for now. Tele History of hypertension/dyslipidemia History of coronary artery disease. Post coronary artery bypass grafting. Unremarkable transthoracic echo 04/22/2023 with preserved left ventricular ejection fraction and no evidence of any advanced valvular abnormality Obstructive sleep apnea/renal insufficiency/diabetes. - As per primary service Plan: I interviewed and examined the patient and reviewed his records and discussed his case with Dr Abdul Recommendations are as noted above SEFERINO CHARLES MD FACP [facility] CCDS May 01, 2023 17:02
[2023-05-01] MEDS: ENOXAPARIN 40 MG/0.4 ML (LOVENOX) SYR SC SCH (17:09)
[2023-05-01 21:09] VITALS: BP 158/60
[2023-05-02] MEDS: inSUlin ASPART (NovoLOG) 1 UNIT/0.01 ML (CHARGE PER UNIT) SC SCH (06:36)
[2023-05-02] MEDS: GLIMEPIRIDE 2 MG (AMARYL) TAB PO SCH (06:45)
[2023-05-02] MEDS: metFORMIN 500 MG (GLUCOPHAGE) TAB PO SCH (06:46)
--- NOTE | 2023-05-02 07:15 | Discharge Summary ---
Diagnosis/Chief Complaint Date of Admission Apr 24, 2023 at 12:00 Date of Discharge Discharge Date: May 02, 2023 Discharge Diagnosis Assessment: CVA with left-sided weakness with infarct confirmed on MRI placed on Plavix and aspirin and statin Diabetes insulin-dependent oji-ry-buajodo Hypertension Hyperlipidemia CAD previous bypass Carotid stenosis with stable carotid ultrasound performed on 04/21/[address] 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 Plan: Home meds Supportive care Glucometer checks Plavix and aspirin Monitor closely 04/25/2023: Adjust insulin Permissive hypertension 04/26/2023: Supportive care Monitor sugar 04/27/2023: Monitor sugar closely 04/28/2023: Monitor sugar and blood pressure 04/29/2023: Supportive care Start Levemir DC 70/30 04/30/2023: Supportive care Monitor closely 05/01/2023: Supportive care (1) CVA (cerebral vascular accident) Discharge Summary Discharge Physical Examination Allergies: Coded Allergies: tetracycline (Verified Allergy, Mild, Rash, 04/24/23) Vitals & I&Os Vital Signs Date Time Temp Pulse Resp B/P (MAP) Pulse Ox O2 Delivery O2 Flow Rate FiO2 05/02/23 09:36 36.3 54 16 148/65 (92) 100 Room Air 05/02/23 03:12 30.00 General Appearance: Alert, Oriented X3, Cooperative Respiratory: Clear to Auscultation Cardiovascular: Regular Rate Psych/Mental Status: Mental Status NL Hospital Course Was the Problem List Reviewed?: Yes Hospital course: Patient had an uneventful hospital course after he was transferred from [facility] inpatient rehab following a stroke with left upper extremity weakness with left hand weakness and some mild expressive aphasia. Blood sugars remained stable with transition to insulin. Diabetic education provided. Blood pressure remained stable Norvasc held due to mild permissive hypertension recommended. cardiology did evaluate him EKG was abnormal and patient was placed on metoprolol. Overall he did very well and was deemed stable for discharge. Labs (last 24 hrs) Laboratory Tests 04/24/23 15:28: Glucometer 232H 04/24/23 20:24: Glucometer 303H 04/25/23 05:30: White Blood Count 8.7, Red Blood Count 4.11L, Hemoglobin 11.4L, Hematocrit 35L, Mean Corpuscular Volume 85, Mean Corpuscular Hemoglobin 28, Mean Corpuscular Hemoglobin Concent 33, Red Cell Distribution Width 13.8, Platelet Count 276, Mean Platelet Volume 10.2, Immature Granulocyte % (Auto) 0, Neutrophils (%) (Auto) 61, Lymphocytes (%) (Auto) 18, Monocytes (%) (Auto) 11, Eosinophils (%) (Auto) 9, Basophils (%) (Auto) 1, Neutrophils # (Auto) 5.3, Lymphocytes # (Auto) 1.6, Monocytes # (Auto) 0.9, Eosinophils # (Auto) 0.8H, Basophils # (Auto) 0.1, Immature Granulocyte # (Auto) 0.0, Sodium Level 136, Potassium Level 4.0, Chloride Level 105, Carbon Dioxide Level 22, Anion Gap 9, Blood Urea Nitrogen 16, Creatinine 1.10, Estimat Glomerular Filtration Rate 74, BUN/Creatinine Ratio 15, Glucose Level 181H, Mean Blood Glucose 177H, Hemoglobin A1c 7.8H, Calcium Level 8.8, Corrected Calcium 9.2, Total Bilirubin 0.4, Aspartate Amino Transf (AST/SGOT) 12, Alanine Aminotransferase (ALT/SGPT) 15, Alkaline Phosphatase 59, Total Protein 6.8, Albumin 3.5 04/25/23 11:18: Glucometer 97 04/25/23 15:05: Glucometer 170H 04/25/23 20:14: Glucometer 166H 04/26/23 06:40: Glucometer 134H 04/26/23 10:40: Glucometer 179H 04/26/23 15:31: Glucometer 181H 04/26/23 20:41: Glucometer 143H 04/27/23 05:07: Glucometer 149H 04/27/23 10:57: Glucometer 154H 04/27/23 15:27: Glucometer 226H 04/27/23 20:00: Glucometer 149H 04/28/23 06:48: Glucometer 130H 04/28/23 10:49: Glucometer 137H 04/28/23 15:26: Glucometer 193H 04/28/23 20:24: Glucometer 179H 04/29/23 06:21: Glucometer 163H 04/29/23 11:00: Glucometer 167H 04/29/23 16:03: Glucometer 189H 04/29/23 16:52: Sodium Level 137, Potassium Level 4.2, Chloride Level 103, Carbon Dioxide Level 23, Anion Gap 11, Blood Urea Nitrogen 23H, Creatinine 1.49H, Estimat Glomerular Filtration Rate 51, BUN/Creatinine Ratio 15, Glucose Level 184H, Calcium Level 9.4, Magnesium Level 2.2 04/29/23 21:00: Glucometer 171H 04/30/23 06:19: Glucometer 135H 04/30/23 10:48: Glucometer 146H 04/30/23 15:44: Glucometer 237H 04/30/23 20:27: Glucometer 150H 05/01/23 05:32: Glucometer 136H 05/01/23 11:26: Glucometer 149H 05/01/23 16:04: Glucometer 217H 05/01/23 20:05: Glucometer 158H 05/02/23 06:14: Glucometer 152H Pending Labs Laboratory Tests 04/24/23 15:28: Glucometer 232 04/24/23 20:24: Glucometer 303 04/25/23 05:30: White Blood Count 8.7, Red Blood Count 4.11, Hemoglobin 11.4, Hematocrit 35, Mean Corpuscular Volume 85, Mean Corpuscular Hemoglobin 28, Mean Corpuscular Hemoglobin Concent 33, Red Cell Distribution Width 13.8, Platelet Count 276, Mean Platelet Volume 10.2, Immature Granulocyte % (Auto) 0, Neutrophils (%) (Auto) 61, Lymphocytes (%) (Auto) 18, Monocytes (%) (Auto) 11, Eosinophils (%) (Auto) 9, Basophils (%) (Auto) 1, Neutrophils # (Auto) 5.3, Lymphocytes # (Auto) 1.6, Monocytes # (Auto) 0.9, Eosinophils # (Auto) 0.8, Basophils # (Auto) 0.1, Immature Granulocyte # (Auto) 0.0, Sodium Level 136, Potassium Level 4.0, Chloride Level 105, Carbon Dioxide Level 22, Anion Gap 9, Blood Urea Nitrogen 16, Creatinine 1.10, Estimat Glomerular Filtration Rate 74, BUN/Creatinine Ratio 15, Glucose Level 181, Mean Blood Glucose 177, Hemoglobin A1c 7.8, Calcium Level 8.8, Corrected Calcium 9.2, Total Bilirubin 0.4, Aspartate Amino Transf (AST/SGOT) 12, Alanine Aminotransferase (ALT/SGPT) 15, Alkaline Phosphatase 59, Total Protein 6.8, Albumin 3.5 04/25/23 11:18: Glucometer 97 04/25/23 15:05: Glucometer 170 04/25/23 20:14: Glucometer 166 04/26/23 06:40: Glucometer 134 04/26/23 10:40: Glucometer 179 04/26/23 15:31: Glucometer 181 04/26/23 20:41: Glucometer 143 04/27/23 05:07: Glucometer 149 04/27/23 10:57: Glucometer 154 04/27/23 15:27: Glucometer 226 04/27/23 20:00: Glucometer 149 04/28/23 06:48: Glucometer 130 04/28/23 10:49: Glucometer 137 04/28/23 15:26: Glucometer 193 04/28/23 20:24: Glucometer 179 04/29/23 06:21: Glucometer 163 04/29/23 11:00: Glucometer 167 04/29/23 16:03: Glucometer 189 04/29/23 16:52: Sodium Level 137, Potassium Level 4.2, Chloride Level 103, Carbon Dioxide Level 23, Anion Gap 11, Blood Urea Nitrogen 23, Creatinine 1.49, Estimat Glomerular Filtration Rate 51, BUN/Creatinine Ratio 15, Glucose Level 184, Calcium Level 9.4, Magnesium Level 2.2 04/29/23 21:00: Glucometer 171 04/30/23 06:19: Glucometer 135 04/30/23 10:48: Glucometer 146 04/30/23 15:44: Glucometer 237 04/30/23 20:27: Glucometer 150 05/01/23 05:32: Glucometer 136 05/01/23 11:26: Glucometer 149 05/01/23 16:04: Glucometer 217 05/01/23 20:05: Glucometer 158 05/02/23 06:14: Glucometer 152 Discharge Home Medications: Active Scripts Active Lancets 33 Gauge Each Each [facility] Pharmacist Choice (Blood-Glucose Meter) 1 Each Each [facility] Pharmacist Choice (Blood Sugar Diagnostic) 1 Each Strip 1 Each [facility] Levemir Flexpen (Insulin Detemir) 100 Unit/Ml (3 Ml) Insuln.pen 7 Unit SQ BID Amaryl (Glimepiride) 2 Mg Tab 2 Mg PO DAILY@0630 Citalopram HBr (Citalopram Hydrobromide) 20 Mg Tablet 20 Mg PO DAILY Aspirin EC (Aspirin) 81 Mg Tablet.dr 81 Mg PO DAILY Metoprolol Tartrate 50 Mg Tablet 50 Mg PO BID WITH MEALS Clopidogrel (Clopidogrel Bisulfate) 75 Mg Tablet 75 Mg PO DAILY Atorvastatin Calcium 80 Mg Tablet 80 Mg PO HS Losartan Potassium 100 Mg Tablet 100 Mg PO DAILY Jardiance (Empagliflozin) 25 Mg Tablet 25 Mg PO DAILY Reported Metformin HCl 500 Mg Tablet 1,000 Mg PO BID TAKES 2 (500MG) TABS Nitroglycerin 0.4 Mg Tab.subl 0.4 Mg SL UD PRN Instructions to patient/family Please see electronic discharge instructions given to patient. Diagnosis/Problems Diagnosis/Problems (1) CVA (cerebral vascular accident) ADRI GOODRICH DO May 02, 2023 07:15
[2023-05-02] MEDS: DOCUSATE SODIUM 100 MG (COLACE) CAP PO SCH (07:34)
[2023-05-02] MEDS: ASPIRIN E.C. 81 MG (ECOTRIN) TAB PO SCH (07:34)
[2023-05-02] MEDS: EMPAGLIFLOZIN 10 MG TABLET (JARDIANCE) PO SCH (07:35)
[2023-05-02] MEDS: meTOprolol TARTRATE 50 MG (LOPRESSOR) TAB PO SCH (07:35)
[2023-05-02] MEDS: SENNA W/DOCUSATE (SENOKOT S) TABLET PO SCH (07:35)
[2023-05-02] MEDS: CLOPIDOGREL 75 MG (PLAVIX) TABLET PO SCH (07:35)
[2023-05-02] MEDS: LOSARTAN 100 MG (COZAAR) TABLET PO SCH (07:35)
[2023-05-02] MEDS: polyethylene glycoL POWDER 17 GM (MIRALAX) PACK PO SCH (09:14)
[2023-05-02 09:33] VITALS: BP 158/60
[2023-05-02 09:36] VITALS: BP 148/65
--- NOTE | 2023-05-03 14:20 | Therapy Team Discharge Summary ---
Therapy Discharge Summary Discharge Recommendations Date of Discharge May 02, 2023 at 09:10 Physical Therapy Roll Left to Right (QC): 6 Sit to Lying (QC): 6 Lying to Sitting/Side of Bed(Q: 6 Sit to Stand (QC): 4 Chair/Agi-lz-Ncmnd Xfer(QC): 4 Toilet Transfer (QC): 4 Car Transfer (QC): 4 Does the Patient Walk: Yes Mode of Locomotion: Walk Anticipated Mode of Locomotion: Walk Walk 10 feet (QC): 4 Walk 50 ft with 2 Turns(QC): 4 Walk 150 ft (QC): 4 Walking 10ft on uneven surface: 4 Distance: 200 Gait Assistive Device: Cane Small Base Quad Does the Pt Use a Wheelchair: Yes Wheel 50 ft with 2 turns (QC): 4 Wheel 150 ft (QC): 4 Type of Wheelchair: Manual #of Steps: 15 1 Step (curb) (QC): 4 4 Steps (QC): 4 12 Steps (QC): 4 Balance Sitting Static: Good Balance Sitting Dynamic: Good Balance-Standing Static: Fair Picking up an Object (QC): 4 Occupational Therapy CVA with left-sided weakness with infarct confirmed on MRI admission to [facility] 04/24/23 On evaluation Eating (QC): 5 Oral Hygiene (QC): 10 Shower/Bathe Self (QC): 10 Upper Body Dressing (QC): 4 Lower Body Dressing (QC): 3 (Min/mod assist with donning pants per pt.) On/Off Footwear (QC): 3 Toileting Hygiene (QC): 10 Patient worked w/ Occupational Therapy for ROM, strengthening, ADLS sequences, use of ADs/tools for independence and safety. Patient refused most AD intervention. Patient met 2 of his established. DC OT services Decreased Safety Aware, Decreased UE Strength Eating (QC): 6 Oral Hygiene (QC): 5 Shower/Bathe Self (QC): 5 Upper Body Dressing (QC): 3 Lower Body Dressing (QC): 3 (mod) On/Off Footwear (QC): 3 Toileting Hygiene (QC): 6 PT Early Childhood Education Specialist Goals Retirement Goals PT Retirement Goals Time Frame: May 07, 2023 Roll Left to Right (QC): 6 Sit to Lying (QC): 6 Lying-Sitting on Side/Bed(QC): 6 Sit to Stand (QC): 6 Chair/Nbk-qo-Tnmuv Xfer(QC): 6 Toilet/Commode Transfer (QC): 6 Car Transfer (QC): 6 Does the Patient Walk: Yes Walk 10 feet (QC): 6 Walk 10ft-Uneven Surface(QC): 6 Walk 50ft with 2 Turns (QC): 6 Walk 150 ft (QC): 6 Does the Pt use WC or Scooter?: No Wheel 50 feet with 2 turns (QC: 6 Type: Manual Wheel 150 feet: 6 Type: Manual 1 Step (curb) (QC): 6 4 Steps (QC): 6 12 Steps (QC): 6 Picking up an Object (QC): 6 OT Retirement Goals Early Childhood Education Specialist Goals Time Frame: May 10, 2023 Acute change in mental status: 0 Inattention: 0 Disorganized thinkin Altered level of consciousness: 0 Eating (QC): 6 (met) Oral Hygiene (QC): 6 (not met) Toileting Hygiene (QC): 6 (met) Shower/Bathe Self (QC): 6 (not met) Upper Body Dressing (QC): 6 (not met) Lower Body Dressing (QC): 6 (not met) On/Off Footwear (QC): 6 (not met) Additional Goals: 1-Demonstrate ADL Tasks, 2-Verbalize Understanding, 3- ImproveStrength/Karen 1=Demonstrate adherence to instructed precautions during ADL tasks. 2=Patient will verbalize/demonstrate understanding of assistive devices/modifications for ADL. 3=Patient will improve strength/tolerance for activity to enable patient to perform ADL's. Speech Early Childhood Education Specialist Goals Early Childhood Education Specialist Goals Pt to complete oral motor exercises for dysarthria and speech tasks with 80% accuracy min verbal cues. CARLOS CHAN OT May 03, 2023 14:20
--- NOTE | 2023-05-05 15:07 | Therapy Team Discharge Summary ---
Therapy Discharge Summary Discharge Recommendations Date of Discharge May 02, 2023 at 09:10 Physical Therapy Pt began having stroke like symptoms 04/21/2023. Pt taken to [facility] in [facility] where he was diagnosed with CVA. Admitted to ARU on 04/24/2023. At PLOF, pt was Ind. Upon PT eval, pt was SBA/CGA for functional mobility. PT worked on strengthening, balance, walking, stairs, Ind, and safety. Pt progressed well with PT and met some set goals. Pt cont to have balance and safety issues, which required SBA/CGA for transfers, walking, and stairs. Pt cont to use a QC. Pt d/c from ARU on 05/02/2023 to home with spouse and HH services; D/C from PT. Roll Left to Right (QC): 6 Sit to Lying (QC): 6 Lying to Sitting/Side of Bed(Q: 6 Sit to Stand (QC): 4 Chair/Tcn-gz-Ujjox Xfer(QC): 4 Toilet Transfer (QC): 4 Car Transfer (QC): 4 Does the Patient Walk: Yes Mode of Locomotion: Walk Anticipated Mode of Locomotion: Walk Walk 10 feet (QC): 4 Walk 50 ft with 2 Turns(QC): 4 Walk 150 ft (QC): 4 Walking 10ft on uneven surface: 4 Distance: 200 Gait Assistive Device: Cane Small Base Quad Does the Pt Use a Wheelchair: Yes Wheel 50 ft with 2 turns (QC): 4 Wheel 150 ft (QC): 4 Type of Wheelchair: Manual #of Steps: 15 1 Step (curb) (QC): 4 4 Steps (QC): 4 12 Steps (QC): 4 Walking Assistive Device: Cane Balance Sitting Static: Good Balance Sitting Dynamic: Good Balance-Standing Static: Fair Picking up an Object (QC): 4 Occupational Therapy Decreased Safety Aware, Decreased UE Strength Eating (QC): 6 Oral Hygiene (QC): 5 Shower/Bathe Self (QC): 5 Upper Body Dressing (QC): 3 Lower Body Dressing (QC): 3 (mod) On/Off Footwear (QC): 3 Toileting Hygiene (QC): 6 PT Nursing Home Goals Reaming [employer] Goals PT Nursing Home Goals Time Frame: May 07, 2023 Roll Left to Right (QC): 6 Sit to Lying (QC): 6 Lying-Sitting on Side/Bed(QC): 6 Sit to Stand (QC): 6 Chair/Jlc-uk-Qrite Xfer(QC): 6 Toilet/Commode Transfer (QC): 6 Car Transfer (QC): 6 Does the Patient Walk: Yes Walk 10 feet (QC): 6 Walk 10ft-Uneven Surface(QC): 6 Walk 50ft with 2 Turns (QC): 6 Walk 150 ft (QC): 6 Does the Pt use WC or Scooter?: No Wheel 50 feet with 2 turns (QC: 6 Type: Manual Wheel 150 feet: 6 Type: Manual 1 Step (curb) (QC): 6 4 Steps (QC): 6 12 Steps (QC): 6 Picking up an Object (QC): 6 OT Nursing Home Goals Reaming [employer] Goals Time Frame: May 10, 2023 Acute change in mental status: 0 Inattention: 0 Disorganized thinkin Altered level of consciousness: 0 Eating (QC): 6 (met) Oral Hygiene (QC): 6 (not met) Toileting Hygiene (QC): 6 (met) Shower/Bathe Self (QC): 6 (not met) Upper Body Dressing (QC): 6 (not met) Lower Body Dressing (QC): 6 (not met) On/Off Footwear (QC): 6 (not met) Additional Goals: 1-Demonstrate ADL Tasks, 2-Verbalize Understanding, 3- ImproveStrength/Karen 1=Demonstrate adherence to instructed precautions during ADL tasks. 2=Patient will verbalize/demonstrate understanding of assistive devices/modifications for ADL. 3=Patient will improve strength/tolerance for activity to enable patient to perform ADL's. 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 LORENZO ARAUZ PT May 05, 2023 15:07
== END 2023-05-02 09:10 | disposition home health service (06) | DRG 57 ==
PROVIDERS: ADMIT Internal Medicine; ATTEND Internal Medicine
DX: I69.354 Hemiplegia and hemiparesis following cerebral infarction affecting left non-dominant side (principal); I69.320 Aphasia following cerebral infarction; R00.1 Bradycardia, unspecified; I49.3 Ventricular premature depolarization; I12.9 Hypertensive chronic kidney disease with stage 1 through stage 4 chronic kidney disease, or unspecified chronic kidney disease; E11.22 Type 2 diabetes mellitus with diabetic chronic kidney disease; E11.65 Type 2 diabetes mellitus with hyperglycemia; N18.9 Chronic kidney disease, unspecified; G47.33 Obstructive sleep apnea (adult) (pediatric); E78.00 Pure hypercholesterolemia, unspecified; I25.10 Atherosclerotic heart disease of native coronary artery without angina pectoris; H35.072 Retinal telangiectasis, left eye; H54.50 Low vision, one eye, unspecified eye; I65.29 Occlusion and stenosis of unspecified carotid artery; Z79.4 Long term (current) use of insulin; Z79.84 Long term (current) use of oral hypoglycemic drugs; Z95.1 Presence of aortocoronary bypass graft; Z86.718 Personal history of other venous thrombosis and embolism; Z79.82 Long term (current) use of aspirin
CPT/HCPCS: 36415; 80048; 80053; 82947; 83036; 83735; 85025; 93005; 94660; 94760